=== PATIENT | female | born 1960 | race Caucasian/White ===

== ENCOUNTER 2019-05-09 05:04 | Inpatient (IN) | payer OTHER ==
[~2019-05-09] VITALS: Ht 165.1 cm; Wt 99.9 kg
--- NOTE | 2019-05-09 05:24 | PHYS DOC ---
Adult General Chief Complaint Chief Complaint: SYNCOPE HPI HPI Patient is a 59 year old f biba with syncopal event. ate shrimp with [place] island[place] food last night. went to bathroom thought she was going to have some diarrhea become very very lightheaded and had to sit herself on the ground she might have lost consciousness for a few seconds she's not sure did not hit her head on arrival to the emergency room and large volume diarrhea. Apparently according to the paramedics to try to do orthostatics but she just got so dizzy she almost passed out again when they sat her up blood pressure lying flat was 110 systolic Past medical history includes a prior gastric bypass as well as a thyroid problem but generally is overall pretty healthy. lot of stress daughter , issues there. also lots of work stress (JUAN MANUEL HIDALGO MD) Review of Systems Review of Systems Constitutional: Denies fever or chills [] Eyes: Denies change in visual acuity, redness, or eye pain [] HENT: Denies nasal congestion or sore throat [] Respiratory: Denies cough or shortness of breath [] Cardiovascular: No additional information not addressed in HPI [] Integument: Denies rash or skin lesions [] Neurologic: Denies headache, focal weakness or sensory changes [] Endocrine: Denies polyuria or polydipsia [] All other systems were reviewed and found to be within normal limits, except as documented in this note. (JUAN MANUEL HIDALGO MD) Current Medications Current Medications Current Medications Medications (Trade) Dose Ordered Sig/Reynold Start Time Stop Time Status Last Admin Dose Admin Dicyclomine HCl (Bentyl) 10 mg 1X ONCE 05/09/19 07:15 05/09/19 07:16 DC 05/09/19 07:55 10 MG Fentanyl Citrate (Fentanyl 2ml Vial) 50 mcg 1X ONCE 05/09/19 07:15 05/09/19 07:16 DC 05/09/19 07:57 50 MCG Info (CONTRAST GIVEN -- Rx MONITORING) 1 each PRN DAILY PRN 05/09/19 08:00 05/11/19 07:59 Iohexol (Omnipaque 300 Mg/ml) 60 ml 1X ONCE 05/09/19 08:00 05/09/19 08:01 DC 05/09/19 08:25 60 ML Ketorolac Tromethamine (Toradol 30mg Vial) 30 mg 1X ONCE 05/09/19 07:00 05/09/19 07:01 DC 05/09/19 06:27 30 MG Ondansetron HCl (Zofran) 4 mg 1X ONCE 05/09/19 06:15 05/09/19 06:16 DC 05/09/19 06:06 4 MG Sodium Chloride 500 ml @ 500 mls/hr 1X ONCE 05/09/19 06:00 05/09/19 06:59 DC 05/09/19 06:07 500 MLS/HR (BRITNEY PINEDA MD) Allergies Allergies Allergies Coded Allergies Type Severity Reaction Last Updated Verified acetaminophen Adverse Reaction Mild ITCHING 05/09/19 Yes amoxicillin Adverse Reaction Mild DIARRHEA 05/09/19 Yes clavulanic acid Adverse Reaction Mild DIARRHEA 05/09/19 Yes hydrocodone Adverse Reaction Mild ITCHING 05/09/19 Yes (BRITNEY PINEDA MD) Physical Exam Physical Exam Constitutional: Well developed, well nourished, no acute distress, non-toxic appearance. [] HENT: Normocephalic, atraumatic, bilateral external ears normal, oropharynx dry no oral exudates, nose normal. [] Eyes: PERRLA, EOMI, conjunctiva normal, no discharge. [] Neck: Normal range of motion, no tenderness, supple, no stridor. [] Cardiovascular:Heart rate regular rhythm, no murmur [] Lungs & Thorax: Bilateral breath sounds clear to auscultation [] Abdomen: Bowel sounds normal, soft, no tenderness, no masses, no pulsatile m asses. [] Skin: Warm, dry, no erythema, no rash. [] Back: No tenderness, no CVA tenderness. [] Extremities: No tenderness, no cyanosis, no clubbing, ROM intact, no edema. [] Neurologic: Alert and oriented X 3, normal motor function, normal sensory function, no focal deficits noted. [] Psychologic: Affect normal, judgement normal, mood normal. [] (JUAN MANUEL HIDALGO MD) Current Patient Data Vital Signs Vital Signs Date Time Temp Pulse Resp B/P (MAP) Pulse Ox O2 Delivery O2 Flow Rate FiO2 05/09/19 08:00 80 23 107/76 (86) 96 Room Air 05/09/19 05:04 97.3 97.3 (BRITNEY PINEDA MD) Lab Values Laboratory Tests Test 05/09/19 05:20 05/09/19 07:15 White Blood Count 14.8 x10^3/uL (4.0-11.0) H Red Blood Count 4.35 x10^6/uL (3.50-5.40) Hemoglobin 13.6 g/dL (12.0-15.5) Hematocrit 40.3 % (36.0-47.0) Mean Corpuscular Volume 93 fL (79-100) Mean Corpuscular Hemoglobin 31 pg (25-35) Mean Corpuscular Hemoglobin Concent 34 g/dL (31-37) Red Cell Distribution Width 12.8 % (11.5-14.5) Platelet Count 285 x10^3/uL (140-400) Neutrophils (%) (Auto) 79 % (31-73) H Lymphocytes (%) (Auto) 16 % (24-48) L Monocytes (%) (Auto) 5 % (0-9) Eosinophils (%) (Auto) 0 % (0-3) Basophils (%) (Auto) 0 % (0-3) Neutrophils # (Auto) 11.7 x10^3uL (1.8-7.7) H Lymphocytes # (Auto) 2.3 x10^3/uL (1.0-4.8) Monocytes # (Auto) 0.7 x10^3/uL (0.0-1.1) Eosinophils # (Auto) 0.0 x10^3/uL (0.0-0.7) Basophils # (Auto) 0.0 x10^3/uL (0.0-0.2) Sodium Level 141 mmol/L (136-145) Potassium Level 3.9 mmol/L (3.5-5.1) Chloride Level 103 mmol/L (98-107) Carbon Dioxide Level 27 mmol/L (21-32) Anion Gap 11 (6-14) Blood Urea Nitrogen 13 mg/dL (7-20) Creatinine 1.0 mg/dL (0.6-1.0) Estimated GFR (Cockcroft-Gault) 56.9 BUN/Creatinine Ratio 13 (6-20) Glucose Level 139 mg/dL (70-99) H Calcium Level 9.5 mg/dL (8.5-10.1) Magnesium Level 2.2 mg/dL (1.8-2.4) Total Bilirubin 0.5 mg/dL (0.2-1.0) Aspartate Amino Transferase (AST) 21 U/L (15-37) Alanine Aminotransferase (ALT) 33 U/L (14-59) Alkaline Phosphatase 89 U/L (46-116) Total Protein 7.5 g/dL (6.4-8.2) Albumin 3.7 g/dL (3.4-5.0) Albumin/Globulin Ratio 1.0 (1.0-1.7) Urine Collection Type Unknown Urine Color Yellow Urine Clarity Clear Urine pH 5.5 Urine Specific [place] 1.015 Urine Protein Negative mg/dL (NEG-TRACE) Urine Glucose (UA) Negative mg/dL (NEG) Urine Ketones (Stick) Negative mg/dL (NEG) Urine Blood Negative (NEG) Urine Nitrite Negative (NEG) Urine Bilirubin Negative (NEG) Urine Urobilinogen Dipstick 0.2 mg/dL (0.2 mg/dL) Urine Leukocyte Esterase Trace (NEG) Urine RBC 0 /HPF (0-2) Urine WBC 5-10 /HPF (0-4) Urine Squamous Epithelial Cells Mod /LPF Urine Bacteria Moderate /HPF (0-FEW) Urine Hyaline Casts Few /HPF Urine Mucus Marked /LPF Laboratory Tests 05/09/19 05:20 Laboratory Tests 05/09/19 05:20 (BRITNEY PINEDA MD) EKG EKG EKG shows a normal sinus rhythm rate of 78 QTC 462 no STEMI no obvious acute ischemic changes noted interpreted by me the time of encounter[] (JUAN MANUEL HIDALGO MD) Radiology/Procedures Radiology/Procedures [] (JUAN MANUEL HIDALGO MD) Radiology/Procedures [facility] [address] [place] [address] IMAGING REPORT Signed PATIENT: YURY MCCLURE ACCOUNT: [id number] : 1960 LOCATION: [address] [place] [address] AGE: 59 SEX: F EXAM STATUS: ADM IN ORD. PHYSICIAN: BRITNEY PNIEDA MD REASON: syncope PROCEDURE: CT HEAD WO CONTRAST EXAM: CT Head without IV contrast CLINICAL HISTORY: Syncope COMPARISON: None. TECHNIQUE: Routine CT of the head without contrast. Soft tissues and bone windows were reviewed. PQRS compliance statement - One or more of the following individualized dose reduction techniques were utilized for this study: 1. Automated exposure control 2. Adjustment of the mA and/or kV according to patient size 3. Use of iterative reconstruction technique FINDINGS: There is no evidence of hemorrhage, mass or extra-axial fluid collection. Barnett-white differentiation is maintained with no evidence of edema. There is no mass effect or shift of the intracranial structures. The ventricles, basilar cisterns and cortical sulci are normal in size and configuration for the patients stated age. The cerebellum and brainstem are unremarkable. The calvarium demonstrates no evidence of fracture or focal lesion. Partial opacification of the maxillary sinuses with air-fluid level, nonspecific may be seen with sinusitis. Patchy opacification of scattered ethmoid air cells. Mastoid air cells are clear. The visualized portions of the orbits are normal. IMPRESSION: No evidence for acute intracranial process Multifocal sinus opacification may represent changes of sinusitis. Electronically signed by: Angel Caban MD (05/09/2019 8:45 AM) [id number] DICTATED and SIGNED BY: ANGEL CABAN MD DATE: 05/09/19 0845 [facility] [address] [place] [address] IMAGING REPORT Signed PATIENT: YURY MCCLURE ACCOUNT: [id number] : 1960 LOCATION: [address] [place] [address] AGE: 59 SEX: F EXAM STATUS: ADM IN ORD. PHYSICIAN: BRITNEY PINEDA MD REASON: nausea and vomiting and diarrhea and leukocytosis PROCEDURE: CT ABD PELV W/ IV CONTRST ONLY EXAM: CT Abdomen and Pelvis with IV contrast CLINICAL HISTORY: Nausea and vomiting, diarrhea. Leukocytosis.. COMPARISON: none TECHNIQUE: Helical CT of the abdomen and pelvis was performed following the administration of intravenous contrast. Axial, coronal and sagittal reformatted images were generated. PQRS compliance statement - One or more of the following individualized dose reduction techniques were utilized for this study: 1. Automated exposure control 2. Adjustment of the mA and/or kV according to patient size 3. Use of iterative reconstruction technique FINDINGS: Lower chest: Linear opacities in the lingula likely scarring/atelectasis. No lobar consolidation. Small hiatal hernia. Abdomen and Pelvis: No focal liver lesion. Diffuse hepatic hypoattenuation may be seen with hepatic steatosis. Accounting for postcholecystectomy state, no biliary ductal dilatation. A 9 mm hypodense splenic lesion is seen in the inferior, medial spleen, accurate Hounsfield measurement is limited but likely cystic. Adrenal glands and pancreas are unremarkable. Symmetric nephrograms. No focal renal lesion. No hydronephrosis. Appendix is normal. No small or large bowel dilatation. Colon is distended with fluid, may be seen with diarrheal state. Colonic diverticulosis without evidence for acute diverticulitis. Changes of gastric surgery are seen. No free or loculated abdominal or pelvic fluid collection. No pneumoperitoneum. Uterus and adnexa are grossly unremarkable. Bones: Degenerative changes of the spine are seen. IMPRESSION: 1. Colon is partially distended with fluid, which may be seen with diarrheal state. 2. Colonic diverticulosis without evidence for acute diverticulitis. 3. No small or large bowel obstruction. 4. Diffuse hepatic hypoattenuation may be seen with hepatic steatosis. 5. No free or loculated abdominal or pelvic collection. Electronically signed by: Angel Caban MD (05/09/2019 8:51 AM) [id number] DICTATED and SIGNED BY: ANGEL CABAN MD DATE: 05/09/19 0851 (BRITNEY PINEDA MD) Course & Med Decision Making Course & Med Decision Making Pertinent Labs and Imaging studies reviewed. (See chart for details) Syncope with orthostasis by the paramedics in setting of diarrhea plan for lab workup IV fluids and reassessment signed over to veronica. [] (JUAN MANUEL HIDALGO MD) Course & Med Decision Making Patient requiring admission for further evaluation and treatment. Discussed with Dr. aKpoor who is in agreement with admission. Discussed findings and plan with patient and family, who acknowledge understanding and agreement. (BRITNEY PINEDA MD) Dragon Disclaimer Dragon Disclaimer This electronic medical record was generated, in whole or in part, using a voice recognition dictation system. (JUAN MANUEL HIDALGO MD) Departure Departure Impression: Primary Impression: Syncope Additional Impression: Acute gastroenteritis Disposition: ADMITTED INPATIENT (at 0836) Admitting Physician: [facility] (Dr Kapoor accepted admission at 0835) (BRITNEY PINEDA MD) Condition: IMPROVED Referrals: DANIELLE COLE MD (PCP) Problem Qualifiers Primary Impression: Syncope Syncope type: unspecified Qualified Codes: R55 - Syncope and collapse JUAN MANUEL HIDALGO MD May 09, 2019 05:24 BRITNEY PINEDA MD May 09, 2019 06:19
[2019-05-09] MEDS ORDERED: IV NORMAL SALINE 1000ML BAG 1,000 ML IV ONE ×2 (06:00)
[2019-05-09] MEDS ORDERED: IV NORMAL SALINE 500ML BAG 500 ML IV ONE ×2 (06:00)
[2019-05-09 06:03] LABS: CALCIUM 9.5 mg/dL (8.5-10.1); GFR 56.9; POTASSIUM 3.9 mmol/L (3.5-5.1)
--- NOTE | 2019-05-09 06:04 | EKG ---
[facility] [address] [place] [address] Test Date: 2019-05-09 Test Time: 05:11:08 Pat Name: YURY MCCLURE Department: Room: Gender: F Game Room Attendant: : 1960 Requested By: JUAN MANUEL HIDALGO Order Number: [id number] Reading MD: Measurements Intervals [place] Rate: 78 P: -29 MI: 150 QRS: -17 QRSD: 88 T: 35 QT: 402 QTc: 462 Interpretive Statements SINUS RHYTHM LEFTWARD AXIS R-S TRANSITION ZONE IN V LEADS DISPLACED TO THE LEFT QRS(T) CONTOUR ABNORMALITY CONSIDER ANTEROSEPTAL MYOCARDIAL DAMAGE POSSIBLY ABNORMAL ECG RI6.01 No previous ECG available for comparison
[2019-05-09 06:11] LABS: ALBUMIN 3.7 g/dL (3.4-5.0); TOTAL BILIRUBIN 0.5 mg/dL (0.2-1.0); TOTAL PROTEIN 7.5 g/dL (6.4-8.2)
[2019-05-09] MEDS ORDERED: ONDANSETRON PF 4 MG/2 ML VIAL. IV ONE (06:15)
[2019-05-09 06:20] LABS: BASO % 0 % (0-3); EOS % 0 % (0-3); HEMATOCRIT 40.3 % (36.0-47.0); HEMOGLOBIN 13.6 g/dL (12.0-15.5); LYMPH # 2.3 x10^3/uL (1.0-4.8); LYMPH % 16 % (24-48); MEAN CORPUSCULAR HEMOGLOBIN 31 pg (25-35); MEAN CORPUSCULAR HGB CONC 34 g/dL (31-37); MEAN CORPUSCULAR VOLUME 93 fL (79-100); MONO # 0.7 x10^3/uL (0.0-1.1); MONO % 5 % (0-9); NEUT # 11.7 x10^3uL (1.8-7.7); NEUT % 79 % (31-73); PLATELET COUNT 285 x10^3/uL (140-400); RED BLOOD COUNT 4.35 x10^6/uL (3.50-5.40); RED CELL DISTRIBUTION WIDTH 12.8 % (11.5-14.5); WHITE BLOOD COUNT 14.8 x10^3/uL (4.0-11.0)
[2019-05-09] MEDS ORDERED: KETOROLAC 30 MG/ML VIAL. IV ONE (07:00)
[2019-05-09] MEDS ORDERED: fentaNYL PF VIAL 100 MCG/2 ML VIAL IV ONE ×2 (07:15→09:45)
[2019-05-09] MEDS ORDERED: DICYCLOMINE HCL 10 MG CAPSULE PO ONE (07:15)
[2019-05-09 07:48] LABS: BILIRUBIN,URINE NEGATIVE (NEG); CLARITY,URINE CLEAR; COLOR,URINE YELLOW; NITRITE,URINE NEGATIVE (NEG); PH,URINE 5.5; PROTEIN,URINE NEGATIVE (NEG-TRACE); UROBILINOGEN,URINE 0.2 mg/dL (0.2 mg/dL)
[2019-05-09] MEDS ORDERED: CONTRAST GIVEN. MC PRN (08:00)
[2019-05-09] MEDS ORDERED: IOHEXOL 300 MG/ML 100ML VIAL. IV ONE (08:00)
[2019-05-09 08:06] LABS: BACTERIA,URINE MODERATE /HPF (0-FEW); HYALINE CASTS, URINE FEW /HPF; RBC,URINE 0 /HPF (0-2); SQUAMOUS EPITHELIAL CELL,UR MOD /LPF
--- NOTE | 2019-05-09 08:37 | PDOC1 ---
History and Physical Date of Admission Date of Admission DATE: 05/09/19 TIME: 08:35 Identification/Chief Complaint Chief Complaint Syncope Source Source: Caregiver, Chart review, Patient History of Present Illness History of Present Illness Ms Pagan is a 59 yo F w/ PMHx gastric sleeve and hypothyroidism who presents with a syncopal event. This began after large voluminous diarrheal BM after she ate fried rice and shrimp with prydeinig food last night. 2 meals prior to that were canned green beans 2 days in a row and a protein shake for breakfast. Has been ill since 4:30 a.m. She got out of bed to urinate and then fainted twice at home, doesn't remember parts of journey to the hospital, felt cold and was sweaty, extremities were tingling and she couldn't move them the second time she lost consciousness. Vomiting and voluminous diarrhea started upon ED arrival. WBC 14.8. Glucose 139. CT A/P noted partially distended colon w/ fluid, diverticulosis, and hepatic steatosis. EKG was NSR No hematemesis, hematochezia, or melena. No change in appetite or weight loss. S/p cholecystectomy (no stones). No liver or pancreas history. Takes ASA daily and uses Advil PRN. She notes significant stress lately. 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 Otherwise no sick contacts. She does further note that she has been having headaches the past 6 weeks since starting estrogen and Vitamin D [id number] weekly. Notes she had a B12 level of 200 at the same office visit 6 weeks ago. No history of syncope or seizures previously. No cardiac history. Past Medical History Cardiovascular: No pertinent hx Pulmonary: No pertinent hx GI: GERD Heme/Onc: B12 deficiency Hepatobiliary: No pertinent hx Psych: No pertinent hx Rheumatologic: No pertinent hx Infectious disease: No pertinent hx ENT: No pertinent hx Renal/: No pertinent hx Endocrine: Hypothyroidism Dermatology: No pertinent hx Past Surgical History Past Surgical History: Appendectomy, Cholecystectomy, , Tonsillectomy, Other (Gastric sleeve) Family History Family History: Hypertension Social History Smoke: <1 pack per day ALCOHOL: rare Drugs: None Current Medications Current Medications Current Medications Sodium Chloride 1,000 ml @ 1,000 mls/hr 1X ONCE IV ; Start 05/09/19 at 06:00; Stop 05/09/19 at 06:59; Status UNV Sodium Chloride 500 ml @ 500 mls/hr 1X ONCE IV ; Start 05/09/19 at 06:00; Stop 05/09/19 at 06:59; Status UNV Sodium Chloride 1,000 ml @ 1,000 mls/hr 1X ONCE IV Last administered on 11/15at 06:07; Start 05/09/19 at 06:00; Stop 05/09/19 at 06:59; Status DC Sodium Chloride 500 ml @ 500 mls/hr 1X ONCE IV Last administered on 05/09/19at 06:07; Start 05/09/19 at 06:00; Stop 05/09/19 at 06:59; Status DC Ondansetron HCl (Zofran) 4 mg 1X ONCE IV Last administered on 05/09/19at 06:06; Start 05/09/19 at 06:15; Stop 05/09/19 at 06:16; Status DC Ketorolac Tromethamine (Toradol 30mg Vial) 30 mg 1X ONCE IV Last administered on 05/09/19at 06:27; Start 05/09/19 at 07:00; Stop 05/09/19 at 07:01; Status DC Fentanyl Citrate (Fentanyl 2ml Vial) 50 mcg 1X ONCE IV ; Start 05/09/19 at 07:15; Stop 05/09/19 at 07:16; Status DC Dicyclomine HCl (Bentyl) 10 mg 1X ONCE PO ; Start 05/09/19 at 07:15; Stop 05/09/19 at 07:16; Status DC Iohexol (Omnipaque 300 Mg/ml) 60 ml 1X ONCE IV Last administered on 05/09/19at 08:25; Start 05/09/19 at 08:00; Stop 05/09/19 at 08:01; Status DC Info (CONTRAST GIVEN -- Rx MONITORING) 1 each PRN DAILY PRN MC SEE COMMENTS; Start 05/09/19 at 08:00; Stop 05/11/19 at 07:59 Allergies Allergies: Coded Allergies: amoxicillin (Verified Adverse Reaction, Mild, DIARRHEA, 05/09/19) clavulanic acid (Verified Adverse Reaction, Mild, DIARRHEA, 05/09/19) hydrocodone (Verified Adverse Reaction, Mild, ITCHING , 05/09/19) ROS General: YES: Chills, Fatigue, Malaise; No: Night Sweats, Appetite, Other PSYCHOLOGICAL ROS: YES: Anxiety; No: Behavioral Disorder, Concentration difficultie, Decreased libido, Depression, Disorientation, Hallucinations, Hostility, Irritablity, Memory difficulties, Mood Swings, Obsessive thoughts, Physical abuse, Sexual abuse, Sle ep disturbances, Suicidal ideation, Other Eyes: No Blurry vision, No Decreased vision, No Double vision, No Dry eyes, No Excessive tearing, No Eye Pain, No Itchy Eyes, No Loss of vision, No Photophobia, No Scotomata, No Uses contacts, No Uses glasses, No Other HEENT: YES: Heacaches; No: Visual Changes, Hearing change, Nasal congestion, Nasal discharge, Oral lesions, Sinus pain, Sore Throat, Epistaxis, Sneezing, Snoring, Tinnitus, Vertigo, Vocal changes, Other ALLERGY AND IMMUNOLOGY: No: Hives, Insect Bite Sensitivity, Itchy/Watery Eyes, Nasal Congestion, Post Nasal Drip, Seasonal Allergies, Other Hematological and Lymphatic: No: Bleeding Problems, Blood Clots, Blood Transfusions, Brusing, Night Sweats, Pallor, Swollen Lymph Nodes, Other ENDOCRINE: No: Breast Changes, Galactorrhea, Hair Pattern Changes, Hot Flashes, Malaise/lethargy, Mood Swings, Palpitations, Polydipsia/polyuria, Skin Changes, Temperature Intolerance, Unexpected Weight Changes, Other Breast: No New/Changing Breast Lumps, No Nipple changes, No Nipple discharge, No Other Respiratory: No: Cough, Hemoptysis, Orthopnea, Pleuritic Pain, Shortness of breath, SOB with excertion, Sputum Changes, Stridor, Tachypnea, Wheezing, Other Cardiovascular: No Chest Pain, No Palpitations, No Orthopnea, No Paroxysmal Noc. Dyspnea, No Edema, No Lt Headedness, No Other Gastrointestinal: Yes Nausea, Yes Vomiting, Yes Abdominal Pain, Yes Diarrhea; No Constipation, No Melena, No Hematochezia, No Other Genitourinary: No Dysuria, No Frequency, No Incontinence, No Hematuria, No Retention, No Discharge, No Urgency, No Pain, No Flank Pain, No Other, No , No , No , No , No , No , No Musculoskeletal: No Gait Disturbance, No Joint Pain, No Joint Stiffness, No Joint Swelling, No Muscle Pain, No Muscular Weakness, No Pain In:, No Swelling In:, No Other Neurological: Yes Headaches; No Behavorial Changes, No Bowel/Bladder ControlChng, No Confusion, No Dizziness, No Gait Disturbance, No Impaired Coord/balance, No Memory Loss, No Numbness/Tingling, No Seizures, No Speech Problems, No Tremors, No Visual Changes, No Weakness, No Other Skin: No Dry Skin, No Eczema, No Hair Changes, No Lumps, No Mole Changes, No Mottling, No Nail Changes, No Pruritus, No Rash, No Skin Lesion Changes, No Other, No Acne Physical Exam General: Alert, Oriented X3, Cooperative, No acute distress HEENT: Atraumatic, PERRLA, EOMI, Mucous membr. moist/pink Lungs: Clear to auscultation, Normal air movement Heart: S1S2, RRR Abdomen: Normal bowel sounds, Soft, No hepatosplenomegaly, No masses, Other (diffuse mild tenderness) Rectal Exam: not examined Extremities: No clubbing, No cyanosis, No edema, Normal pulses, No tenderness/swelling Skin: No rashes, No breakdown, No significant lesion Neuro: Normal gait, Normal speech, Strength at 5/5 X4 ext, Normal tone, Sensation intact, Cranial nerves 3-12 NL, Reflexes 2+ Psych/Mental Status: Mental status NL, Mood NL Vitals Vitals Vital Signs Date Time Temp Pulse Resp B/P (MAP) Pulse Ox O2 Delivery O2 Flow Rate FiO2 05/09/19 06:57 85 16 100/67 (78) 97 Room Air 05/09/19 05:04 97.3 97.3 Labs Labs Laboratory Tests Test 05/09/19 05:20 05/09/19 07:15 White Blood Count 14.8 x10^3/uL (4.0-11.0) Red Blood Count 4.35 x10^6/uL (3.50-5.40) Hemoglobin 13.6 g/dL (12.0-15.5) Hematocrit 40.3 % (36.0-47.0) Mean Corpuscular Volume 93 fL (79-100) Mean Corpuscular Hemoglobin 31 pg (25-35) Mean Corpuscular Hemoglobin Concent 34 g/dL (31-37) Red Cell Distribution Width 12.8 % (11.5-14.5) Platelet Count 285 x10^3/uL (140-400) Neutrophils (%) (Auto) 79 % (31-73) Lymphocytes (%) (Auto) 16 % (24-48) Monocytes (%) (Auto) 5 % (0-9) Eosinophils (%) (Auto) 0 % (0-3) Basophils (%) (Auto) 0 % (0-3) Neutrophils # (Auto) 11.7 x10^3uL (1.8-7.7) Lymphocytes # (Auto) 2.3 x10^3/uL (1.0-4.8) Monocytes # (Auto) 0.7 x10^3/uL (0.0-1.1) Eosinophils # (Auto) 0.0 x10^3/uL (0.0-0.7) Basophils # (Auto) 0.0 x10^3/uL (0.0-0.2) Sodium Level 141 mmol/L (136-145) Potassium Level 3.9 mmol/L (3.5-5.1) Chloride Level 103 mmol/L (98-107) Carbon Dioxide Level 27 mmol/L (21-32) Anion Gap 11 (6-14) Blood Urea Nitrogen 13 mg/dL (7-20) Creatinine 1.0 mg/dL (0.6-1.0) Estimated GFR (Cockcroft-Gault) 56.9 BUN/Creatinine Ratio 13 (6-20) Glucose Level 139 mg/dL (70-99) Calcium Level 9.5 mg/dL (8.5-10.1) Total Bilirubin 0.5 mg/dL (0.2-1.0) Aspartate Amino Transf (AST/SGOT) 21 U/L (15-37) Alanine Aminotransferase (ALT/SGPT) 33 U/L (14-59) Alkaline Phosphatase 89 U/L (46-116) Total Protein 7.5 g/dL (6.4-8.2) Albumin 3.7 g/dL (3.4-5.0) Albumin/Globulin Ratio 1.0 (1.0-1.7) Urine Collection Type Unknown Urine Color Yellow Urine Clarity Clear Urine pH 5.5 Urine Specific [place] 1.015 Urine Protein Negative mg/dL (NEG-TRACE) Urine Glucose (UA) Negative mg/dL (NEG) Urine Ketones (Stick) Negative mg/dL (NEG) Urine Blood Negative (NEG) Urine Nitrite Negative (NEG) Urine Bilirubin Negative (NEG) Urine Urobilinogen Dipstick 0.2 mg/dL (0.2 mg/dL) Urine Leukocyte Esterase Trace (NEG) Urine RBC 0 /HPF (0-2) Urine WBC 5-10 /HPF (0-4) Urine Squamous Epithelial Cells Mod /LPF Urine Bacteria Moderate /HPF (0-FEW) Urine Hyaline Casts Few /HPF Urine Mucus Marked /LPF Laboratory Tests Test 05/09/19 05:20 05/09/19 07:15 White Blood Count 14.8 x10^3/uL (4.0-11.0) Red Blood Count 4.35 x10^6/uL (3.50-5.40) Hemoglobin 13.6 g/dL (12.0-15.5) Hematocrit 40.3 % (36.0-47.0) Mean Corpuscular Volume 93 fL (79-100) Mean Corpuscular Hemoglobin 31 pg (25-35) Mean Corpuscular Hemoglobin Concent 34 g/dL (31-37) Red Cell Distribution Width 12.8 % (11.5-14.5) Platelet Count 285 x10^3/uL (140-400) Neutrophils (%) (Auto) 79 % (31-73) Lymphocytes (%) (Auto) 16 % (24-48) Monocytes (%) (Auto) 5 % (0-9) Eosinophils (%) (Auto) 0 % (0-3) Basophils (%) (Auto) 0 % (0-3) Neutrophils # (Auto) 11.7 x10^3uL (1.8-7.7) Lymphocytes # (Auto) 2.3 x10^3/uL (1.0-4.8) Monocytes # (Auto) 0.7 x10^3/uL (0.0-1.1) Eosinophils # (Auto) 0.0 x10^3/uL (0.0-0.7) Basophils # (Auto) 0.0 x10^3/uL (0.0-0.2) Sodium Level 141 mmol/L (136-145) Potassium Level 3.9 mmol/L (3.5-5.1) Chloride Level 103 mmol/L (98-107) Carbon Dioxide Level 27 mmol/L (21-32) Anion Gap 11 (6-14) Blood Urea Nitrogen 13 mg/dL (7-20) Creatinine 1.0 mg/dL (0.6-1.0) Estimated GFR (Cockcroft-Gault) 56.9 BUN/Creatinine Ratio 13 (6-20) Glucose Level 139 mg/dL (70-99) Calcium Level 9.5 mg/dL (8.5-10.1) Total Bilirubin 0.5 mg/dL (0.2-1.0) Aspartate Amino Transf (AST/SGOT) 21 U/L (15-37) Alanine Aminotransferase (ALT/SGPT) 33 U/L (14-59) Alkaline Phosphatase 89 U/L (46-116) Total Protein 7.5 g/dL (6.4-8.2) Albumin 3.7 g/dL (3.4-5.0) Albumin/Globulin Ratio 1.0 (1.0-1.7) Urine Collection Type Unknown Urine Color Yellow Urine Clarity Clear Urine pH 5.5 Urine Specific [place] 1.015 Urine Protein Negative mg/dL (NEG-TRACE) Urine Glucose (UA) Negative mg/dL (NEG) Urine Ketones (Stick) Negative mg/dL (NEG) Urine Blood Negative (NEG) Urine Nitrite Negative (NEG) Urine Bilirubin Negative (NEG) Urine Urobilinogen Dipstick 0.2 mg/dL (0.2 mg/dL) Urine Leukocyte Esterase Trace (NEG) Urine RBC 0 /HPF (0-2) Urine WBC 5-10 /HPF (0-4) Urine Squamous Epithelial Cells Mod /LPF Urine Bacteria Moderate /HPF (0-FEW) Urine Hyaline Casts Few /HPF Urine Mucus Marked /LPF Images Images CT head - No evidence for acute intracranial process Multifocal sinus opacification may represent changes of sinusitis. CT abdomen/pelvis - 1. Colon is partially distended with fluid, which may be seen with diarrheal state. 2. Colonic diverticulosis without evidence for acute diverticulitis. 3. No small or large bowel obstruction. 4. Diffuse hepatic hypoattenuation may be seen with hepatic steatosis. 5. No free or loculated abdominal or pelvic collection. VTE Prophylaxis Ordered VTE Prophylaxis Devices: No VTE Pharmacological Prophylaxi: Yes Assessment/Plan Assessment/Plan A/P: Syncope - likely vasovagal given her history. Will place on telemetry. Check echo. Consult neurology. IVF resuscitation N/V/D - gastroenteritis symptomatically this is likely toxigenic food poisoning given her time course, if infectious more likely viral or e. coli. Would be too high risk to treat with antibiotics without stool. Consult GI given gastric sleeve history S/p gastric sleeve - appropriately on vitamin D replacement, will replace B12 B12 deficiency - replaced Hypothyroidism - cont thyroid replacement Headaches - will add toradol and compazine. Given syncope with EMERY, will consult neurology for further input FEN - Clear liquid diet. LR at 150cc/hr PPX - Lovenox FULL CODE Inpatient for syncope and intractable nausea and vomiting. Will culture if febrile CHAZ JUAREZ MD May 09, 2019 08:37
--- NOTE | 2019-05-09 08:48 | RAD ---
EXAM: CT Head without IV contrast CLINICAL HISTORY: Syncope COMPARISON: None. TECHNIQUE: Routine CT of the head without contrast. Soft tissues and bone windows were reviewed. PQRS compliance statement - One or more of the following individualized dose reduction techniques were utilized for this study: 1. Automated exposure control 2. Adjustment of the mA and/or kV according to patient size 3. Use of iterative reconstruction technique FINDINGS: There is no evidence of hemorrhage, mass or extra-axial fluid collection. Barnett-white differentiation is maintained with no evidence of edema. There is no mass effect or shift of the intracranial structures. The ventricles, basilar cisterns and cortical sulci are normal in size and configuration for the patients stated age. The cerebellum and brainstem are unremarkable. The calvarium demonstrates no evidence of fracture or focal lesion. Partial opacification of the maxillary sinuses with air-fluid level, nonspecific may be seen with sinusitis. Patchy opacification of scattered ethmoid air cells. Mastoid air cells are clear. The visualized portions of the orbits are normal. IMPRESSION: No evidence for acute intracranial process Multifocal sinus opacification may represent changes of sinusitis. Electronically signed by: Angel Soto MD (05/09/2019 8:45 AM) [id number]
--- NOTE | 2019-05-09 08:53 | RAD ---
EXAM: CT Abdomen and Pelvis with IV contrast CLINICAL HISTORY: Nausea and vomiting, diarrhea. Leukocytosis.. COMPARISON: none TECHNIQUE: Helical CT of the abdomen and pelvis was performed following the administration of intravenous contrast. Axial, coronal and sagittal reformatted images were generated. PQRS compliance statement - One or more of the following individualized dose reduction techniques were utilized for this study: 1. Automated exposure control 2. Adjustment of the mA and/or kV according to patient size 3. Use of iterative reconstruction technique FINDINGS: Lower chest: Linear opacities in the lingula likely scarring/atelectasis. No lobar consolidation. Small hiatal hernia. Abdomen and Pelvis: No focal liver lesion. Diffuse hepatic hypoattenuation may be seen with hepatic steatosis. Accounting for postcholecystectomy state, no biliary ductal dilatation. A 9 mm hypodense splenic lesion is seen in the inferior, medial spleen, accurate Hounsfield measurement is limited but likely cystic. Adrenal glands and pancreas are unremarkable. Symmetric nephrograms. No focal renal lesion. No hydronephrosis. Appendix is normal. No small or large bowel dilatation. Colon is distended with fluid, may be seen with diarrheal state. Colonic diverticulosis without evidence for acute diverticulitis. Changes of gastric surgery are seen. No free or loculated abdominal or pelvic fluid collection. No pneumoperitoneum. Uterus and adnexa are grossly unremarkable. Bones: Degenerative changes of the spine are seen. IMPRESSION: 1. Colon is partially distended with fluid, which may be seen with diarrheal state. 2. Colonic diverticulosis without evidence for acute diverticulitis. 3. No small or large bowel obstruction. 4. Diffuse hepatic hypoattenuation may be seen with hepatic steatosis. 5. No free or loculated abdominal or pelvic collection. Electronically signed by: Angel Soto MD (05/09/2019 8:51 AM) [id number]
[2019-05-09] MEDS ORDERED: CYANOCOBALAMIN (VITAMIN B-12) 1,000 MCG/ML VIAL IM ONE (10:00)
[2019-05-09] MEDS ORDERED: IV NORMAL SALINE 1000ML BAG 1,000 ML IV SCH (10:00)
[2019-05-09 10:30] VITALS: BP 112/76
[2019-05-09] MEDS ORDERED: DOCU100C28 PO (10:58)
[2019-05-09] MEDS ORDERED: ASPI-630 PO (10:58)
[2019-05-09] MEDS ORDERED: LEVO100T5 PO (10:58)
[2019-05-09] MEDS ORDERED: VENL225T PO (10:58)
[2019-05-09] MEDS ORDERED: OMEP40CA5 PO (10:58)
[2019-05-09] MEDS ORDERED: PROCHLORPERAZINE 10 MG/2 ML VIAL. IM PRN (11:30)
[2019-05-09] MEDS: IV RINGERS,LACTATED 1000ML 1,000 ML IV SCH ×2 (11:38→19:54)
[2019-05-09] MEDS: LEVOTHYROXINE 100 MCG TABLET PO SCH (11:39)
[2019-05-09] MEDS ORDERED: ASPIRIN CHEWABLE 81 MG TABLET. PO SCH (12:00)
[2019-05-09] MEDS: PROCHLORPERAZINE 10 MG/2 ML VIAL. IV PRN ×2 (12:07→18:47)
--- NOTE | 2019-05-09 12:57 | PDOC2 ---
GI CONSULT Reason For Consult: gastroenteritis, syncope HPI: HPI: 59 y/o female admitted through the ER, seen w/ Dr. Holguin this morning. Has been ill since 4:00 a.m. Says she got out of bed to urinate and then fainted several times, doesn't remember parts of journey to the hospital, felt cold and was sweaty, extremities were tingling and she couldn't move them, says blood pressure was low. Vomiting and diarrhea started after arrival here. Feels like it might happen again, has some abdominal soreness and cramping. WBC 14.8. CT A/P noted partially distended colon w/ fluid, diverticulosis, and hepatic steatosis. Has seen Dr. Zambrano in the past. H/o GERD on Prilosec QD. No dysphagia. No chronic n/v, abd pain, or diarrhea. H/o constipation resolved w/ daily stool softener. No hematemesis, hematochezia, or melena. No change in appetite or weight loss. Reports previous EGDs except for noting gastric sleeve. H/o diverticulitis requiring 7 day hospitalization and IV antibiotics ~20 years ago. Says no mention of diverticular disease on colonoscopy ~6 years ago. S/p cholecystectomy (no stones). No liver or pancreas history. Takes ASA daily and uses Advil PRN. PMH: PMH: GERD, hypothyroidism, depression tonsillectomy, appendectomy, , cholecystectomy FH: Family History: No pertinent hx (denies GI cancers) Social History: Smoke: <1 pack per day (socially when she has a glass of wine) ALCOHOL: social Drugs: None ROS: GEN: +sweats HEENT: Denies blurred vision, sore throat CV: Denies chest pain RESP: Denies shortness of air, cough GI: Per HPI : Denies hematuria, dysuria ENDO: Denies weight changes NEURO: +tingling +syncope MSK: +weakness SKIN: Denies jaundice, pruritus Vitals: Vitals: Vital Signs Date Time Temp Pulse Resp B/P (MAP) Pulse Ox O2 Delivery O2 Flow Rate FiO2 05/09/19 10:42 Room Air 05/09/19 10:30 97.9 79 20 112/76 (88) 96 97.9 Labs: Labs: Laboratory Tests Test 05/09/19 05:20 05/09/19 07:15 White Blood Count 14.8 x10^3/uL (4.0-11.0) Red Blood Count 4.35 x10^6/uL (3.50-5.40) Hemoglobin 13.6 g/dL (12.0-15.5) Hematocrit 40.3 % (36.0-47.0) Mean Corpuscular Volume 93 fL (79-100) Mean Corpuscular Hemoglobin 31 pg (25-35) Mean Corpuscular Hemoglobin Concent 34 g/dL (31-37) Red Cell Distribution Width 12.8 % (11.5-14.5) Platelet Count 285 x10^3/uL (140-400) Neutrophils (%) (Auto) 79 % (31-73) Lymphocytes (%) (Auto) 16 % (24-48) Monocytes (%) (Auto) 5 % (0-9) Eosinophils (%) (Auto) 0 % (0-3) Basophils (%) (Auto) 0 % (0-3) Neutrophils # (Auto) 11.7 x10^3uL (1.8-7.7) Lymphocytes # (Auto) 2.3 x10^3/uL (1.0-4.8) Monocytes # (Auto) 0.7 x10^3/uL (0.0-1.1) Eosinophils # (Auto) 0.0 x10^3/uL (0.0-0.7) Basophils # (Auto) 0.0 x10^3/uL (0.0-0.2) Sodium Level 141 mmol/L (136-145) Potassium Level 3.9 mmol/L (3.5-5.1) Chloride Level 103 mmol/L (98-107) Carbon Dioxide Level 27 mmol/L (21-32) Anion Gap 11 (6-14) Blood Urea Nitrogen 13 mg/dL (7-20) Creatinine 1.0 mg/dL (0.6-1.0) Estimated GFR (Cockcroft-Gault) 56.9 BUN/Creatinine Ratio 13 (6-20) Glucose Level 139 mg/dL (70-99) Calcium Level 9.5 mg/dL (8.5-10.1) Magnesium Level 2.2 mg/dL (1.8-2.4) Total Bilirubin 0.5 mg/dL (0.2-1.0) Aspartate Amino Transf (AST/SGOT) 21 U/L (15-37) Alanine Aminotransferase (ALT/SGPT) 33 U/L (14-59) Alkaline Phosphatase 89 U/L (46-116) Total Protein 7.5 g/dL (6.4-8.2) Albumin 3.7 g/dL (3.4-5.0) Albumin/Globulin Ratio 1.0 (1.0-1.7) Urine Collection Type Unknown Urine Color Yellow Urine Clarity Clear Urine pH 5.5 Urine Specific [place] 1.015 Urine Protein Negative mg/dL (NEG-TRACE) Urine Glucose (UA) Negative mg/dL (NEG) Urine Ketones (Stick) Negative mg/dL (NEG) Urine Blood Negative (NEG) Urine Nitrite Negative (NEG) Urine Bilirubin Negative (NEG) Urine Urobilinogen Dipstick 0.2 mg/dL (0.2 mg/dL) Urine Leukocyte Esterase Trace (NEG) Urine RBC 0 /HPF (0-2) Urine WBC 5-10 /HPF (0-4) Urine Squamous Epithelial Cells Mod /LPF Urine Bacteria Moderate /HPF (0-FEW) Urine Hyaline Casts Few /HPF Urine Mucus Marked /LPF Allergies: Coded Allergies: No Known Medication Allergies (Verified Allergy, Unknown, 05/09/19) acetaminophen (Verified Adverse Reaction, Mild, ITCHING , 05/09/19) amoxicillin (Verified Adverse Reaction, Mild, DIARRHEA, 05/09/19) clavulanic acid (Verified Adverse Reaction, Mild, DIARRHEA, 05/09/19) hydrocodone (Verified Adverse Reaction, Mild, ITCHING , 05/09/19) Medications: Current Medications Medications (Trade) Dose Ordered Sig/Reynold Route PRN Reason Start Time Stop Time Status Last Admin Dose Admin Sodium Chloride 1,000 ml @ 1,000 mls/hr 1X ONCE IV 05/09/19 06:00 05/09/19 06:59 DC 05/09/19 06:07 Sodium Chloride 500 ml @ 500 mls/hr 1X ONCE IV 05/09/19 06:00 05/09/19 06:59 DC 05/09/19 06:07 Ondansetron HCl (Zofran) 4 mg 1X ONCE IV 05/09/19 06:15 05/09/19 06:16 DC 05/09/19 06:06 Ketorolac Tromethamine (Toradol 30mg Vial) 30 mg 1X ONCE IV 05/09/19 07:00 05/09/19 07:01 DC 05/09/19 06:27 Fentanyl Citrate (Fentanyl 2ml Vial) 50 mcg 1X ONCE IV 05/09/19 07:15 05/09/19 07:16 DC 05/09/19 07:57 Dicyclomine HCl (Bentyl) 10 mg 1X ONCE PO 05/09/19 07:15 05/09/19 07:16 DC 05/09/19 07:55 Iohexol (Omnipaque 300 Mg/ml) 60 ml 1X ONCE IV 05/09/19 08:00 05/09/19 08:01 DC 05/09/19 08:25 Fentanyl Citrate (Fentanyl 2ml Vial) 50 mcg 1X ONCE IV 05/09/19 09:45 05/09/19 09:46 DC 05/09/19 09:58 Sodium Chloride 1,000 ml @ 150 mls/hr Q6H40M IV 05/09/19 10:00 05/10/19 09:59 05/09/19 10:07 Cyanocobalamin (Vitamin B-12) 1,000 mcg ONCE ONCE IM 05/09/19 10:00 05/09/19 10:01 DC 05/09/19 11:38 Levothyroxine Sodium (Synthroid) 100 mcg DAILYAC PO 05/09/19 12:00 05/09/19 11:39 Ringer's Solution 1,000 ml @ 100 mls/hr Q10H IV 05/09/19 11:30 05/09/19 11:38 Prochlorperazine Edisylate (Compazine) 10 mg PRN Q6HRS PRN IV NAUSEA/VOMITING 05/09/19 12:15 05/09/19 12:07 Imaging: Imaging: Head CT IMPRESSION: No evidence for acute intracranial process Multifocal sinus opacification may represent changes of sinusitis. CT A/P IMPRESSION: 1. Colon is partially distended with fluid, which may be seen with diarrheal state. 2. Colonic diverticulosis without evidence for acute diverticulitis. 3. No small or large bowel obstruction. 4. Diffuse hepatic hypoattenuation may be seen with hepatic steatosis. 5. No free or loculated abdominal or pelvic collection. PE: GEN: NAD HEENT: Atraumatic, PERRL LUNGS: CTAB HEART: RRR, ABD: NABS, S/ND/NT EXTREMITY: No edema SKIN: No rashes, no jaundice NEURO/PSYCH: A & O 3 A/P: A/P: Syncope Vomiting, diarrhea - after arriving at ER Leukocytosis Abnormal CT - partially distended colon w/ fluid GERD - on PPI CRC screen - UTD Diverticulosis, h/o diverticulitis S/p cholecystectomy Hepatic steatosis H/o gastric sleeve -- Unclear etiology of GI symptoms - other notes mention eating shrimp and Korean food; however, vomiting and diarrhea began after syncope. Await neurology opinion. ?cardiology also Continue PPI. Okay for diet as able. ?stool studies RON LOUIS May 09, 2019 12:57
[2019-05-09] MEDS: VENLAFAXINE 75 MG TABLET. PO SCH ×2 (14:05→20:59)
[2019-05-09 15:00] VITALS: BP 117/68
[2019-05-09] MEDS: KETOROLAC 15 MG/ML VIAL. IV PRN (18:47)
[2019-05-09 19:47] VITALS: BP 119/67
[2019-05-09] MEDS: DOCUSATE SODIUM 100 MG CAPSULE. PO SCH (19:56)
--- NOTE | 2019-05-09 20:07 | PDOC2 ---
NEUROLOGY CONSULT Date of Admission Date of Admission DATE: 05/09/19 TIME: 19:56 Reason for Consult Reason for Consult: IMPRESSION: Episodic LOC. Dizziness. Vomiting. Headache. Syncope. Seizure evaluation. UTI? DM Obesity. RECOMMENDATIONS/PLAN: EEG.MRI w/o contrast. Lab: see orders. Treat medical diseases. HISTORY OF THE PRESENT ILLNESS: This is a 59-y-old female admitted through the ER. She stated she was not feeling well in the past 2 weeks, but had 3 episodes of LOC, dizziness, generalized weakness, headaches, and vomiting since 4:00 a.m this morning. Her caught her form falling. She described that she got out of bed to urina te then fainted several times, doesn't remember parts of journey to the hospital, felt cold and was sweaty, extremities were tingling and she couldn't move them, says blood pressure was low. Vomiting and diarrhea started after arrival here. PMH: GERD, hypothyroidism, depression FH: No pertinent hx (denies GI cancers) PAST SURGERY HISTORY: Tonsillectomy, appendectomy, , cholecystectomy. ALLERGY: Unknown MEDICATIONS: Refer to MAR SOCIAL HISTORY: Lives at home with her . Smoke: <1 pack per day (socially when she has a glass of wine) ALCOHOL: social REVIEW OF SYSTEMS: Constitutional: Obese. Head: No traumatic brain or head injury. Skin: No edema, or rash. Ear: No infection. Eyes: No vision loss or color blindness. Nose: No bleeding or purulent discharges. Hearing: No hearing decrease. Neck: No injury. Breast: No history of cancer, masses,or discharges. Cardiac: No AL, arrhythmia,claudication. Pulmonary: smoking. Cough. GI: GERD. Urinary/genital: UTI. Endocrinologic: Diabetes Mellitus, hypothyroidism, obesity. Skeletomuscular: Generalized weakness. Neurological: see HP. Psychiatric: Denies drug use/abuse. Otherwise, not [id number] review of systems. PHYSICAL EXAMINATION: General appearance is in acute distress. HEENT: Normocephalic and nontraumatic. Eyes, nose, ears, and throat are unremarkable. Neck is supple. No lymphadenopathy. No crepitus. Cardiovascular: S1, S2, regular rate and rhythm. Pulmonary: Clear to auscultation bilaterally. Abdomen: Bowel sounds are positive. Extremities: No rash, lesions, or edema. No restriction of range of motion NEUROLOGICAL EXAMINATION: Drowsiness. Oriented to time, place and person. PERRL. EOMI. CN: no focal findings. Muscle tone: within normal. Muscle strength: 4+ DTR: 2- Plantar reflex: Flexor response bilaterally Gait: not examined in bed. Sensory exam: no abnormal findings. No cerebellar signs elicited. F-T-N test fine. Current Medications Current Medications Current Medications Sodium Chloride 1,000 ml @ 1,000 mls/hr 1X ONCE IV ; Start 05/09/19 at 06:00; Stop 05/09/19 at 06:59; Status UNV Sodium Chloride 500 ml @ 500 mls/hr 1X ONCE IV ; Start 05/09/19 at 06:00; Stop 05/09/19 at 06:59; Status UNV Sodium Chloride 1,000 ml @ 1,000 mls/hr 1X ONCE IV Last administered on 05/09/19at 06:07; Start 05/09/19 at 06:00; Stop 05/09/19 at 06:59; Status DC Sodium Chloride 500 ml @ 500 mls/hr 1X ONCE IV Last administered on 05/09/19at 06:07; Start 05/09/19 at 06:00; Stop 05/09/19 at 06:59; Status DC Ondansetron HCl (Zofran) 4 mg 1X ONCE IV Last administered on 05/09/19at 06:06; Start 05/09/19 at 06:15; Stop 05/09/19 at 06:16; Status DC Ketorolac Tromethamine (Toradol 30mg Vial) 30 mg 1X ONCE IV Last administered on 05/09/19at 06:27; Start 05/09/19 at 07:00; Stop 05/09/19 at 07:01; Status DC Fentanyl Citrate (Fentanyl 2ml Vial) 50 mcg 1X ONCE IV Last administered on 05/09/19at 07:57; Start 05/09/19 at 07:15; Stop 05/09/19 at 07:16; Status DC Dicyclomine HCl (Bentyl) 10 mg 1X ONCE PO Last administered on 05/09/19at 07:55; Start 05/09/19 at 07:15; Stop 05/09/19 at 07:16; Status DC Iohexol (Omnipaque 300 Mg/ml) 60 ml 1X ONCE IV Last administered on 05/09/19at 08:25; Start 05/09/19 at 08:00; Stop 05/09/19 at 08:01; Status DC Info (CONTRAST GIVEN -- Rx MONITORING) 1 each PRN DAILY PRN MC SEE COMMENTS; Start 05/09/19 at 08:00; Stop 05/11/19 at 07:59 Fentanyl Citrate (Fentanyl 2ml Vial) 50 mcg 1X ONCE IV Last administered on 05/09/19at 09:58; Start 05/09/19 at 09:45; Stop 05/09/19 at 09:46; Status DC Sodium Chloride 1,000 ml @ 150 mls/hr Q6H40M IV Last administered on 05/09/19at 10:07; Start 05/09/19 at 10:00; Stop 05/09/19 at 15:52; Status DC Cyanocobalamin (Vitamin B-12) 1,000 mcg ONCE ONCE IM Last administered on 05/09/19at 11:38; Start 05/09/19 at 10:00; Stop 05/09/19 at 10:01; Status DC Prochlorperazine Edisylate (Compazine) 10 mg PRN Q6HRS PRN IM NAUSEA/VOMITING; Start 05/09/19 at 11:30; Stop 05/09/19 at 12:05; Status DC Aspirin (Children'S Aspirin) 81 mg DAILY PO ; Start 05/09/19 at 12:00; Status Cancel Docusate Sodium (Colace) 100 mg HS PO ; Start 05/09/19 at 21:00 Levothyroxine Sodium (Synthroid) 100 mcg DAILYAC PO Last administered on 05/09/19at 11:39; Start 05/09/19 at 12:00 Pantoprazole Sodium (Protonix) 40 mg QHS PO ; Start 05/09/19 at 21:00 Venlafaxine HCl (Effexor) 75 mg TID PO Last administered on 05/09/19at 14:05; Start 05/09/19 at 14:00 Ringer's Solution 1,000 ml @ 150 mls/hr Q6H40M IV Last administered on 05/09/19at 11:38; Start 05/09/19 at 11:30 Ondansetron HCl (Zofran) 4 mg PRN Q6HRS PRN IV NAUSEA/VOMITING, 1st CHOICE; Start 05/09/19 at 11:30 Aspirin (Children'S Aspirin) 81 mg QHS PO ; Start 05/09/19 at 21:00 Prochlorperazine Edisylate (Compazine) 10 mg PRN Q6HRS PRN IV NAUSEA/VOMITING, 2nd CHOICE Last administered on 05/09/19at 18:47; Start 05/09/19 at 12:15 Ketorolac Tromethamine (Toradol 15mg Vial) 15 mg PRN Q8HRS PRN IV PAIN Last administered on 05/09/19at 18:47; Start 05/09/19 at 16:00; Stop 05/14/19 at 15:59 Active Scripts Active Reported Aspirin 81 Mg Tab.chew 81 Mg PO DAILY Docusate Sodium 100 Mg Capsule 1 Cap PO HS Omeprazole 40 Mg Capsule.dr 40 Mg PO HS Levothyroxine Sodium 100 Mcg Tablet 100 Mcg PO DAILYAC Venlafaxine Hcl Er (Venlafaxine Hcl) 225 Mg Tab.er.24 225 Mg PO HS Allergies Allergies: Allergies Coded Allergies Type Severity Reaction Last Updated Verified acetaminophen Adverse Reaction Mild ITCHING 05/09/19 Yes amoxicillin Adverse Reaction Mild DIARRHEA 05/09/19 Yes clavulanic acid Adverse Reaction Mild DIARRHEA 05/09/19 Yes hydrocodone Adverse Reaction Mild ITCHING 05/09/19 Yes ROS Review of System The patient denies any associated fevers, chills, headache, ear pain, rhinorrhea, sore throat, stiff neck, productive cough, chest pain, shortness of breath, back or flank pain, abdominal pain, nausea, vomiting, diarrhea, constipation, dysuria, rash, numbness, weakness, tingling, incontinence, difficulty ambulating, or diaphoresis. Physical Exam Physical Exam General: Well developed, well nourished, no acute distress, well appearing HEENT: Pupils equally round and reactive to light, EOMI, no discharge, normal conjunctiva Neck: Supple, no nuchal rigidity, no JVD, trachea midline, no tenderness Cardiac: RRR, no murmurs, no gallops, no rubs Chest/Lungs: CTAB, no wheeze, no rhonchi, no crackles Abdomen: soft, non-distended, no guarding, no peritoneal signs, non-tender Back: No tenderness Extremities: no edema, pulses intact, non-tender,capillary refill <3 sec bilateral upper and lower extremities, Neuro: Alert and oriented x 4, no focal deficits, normal speech Vitals Vitals: Vital Signs Date Time Temp Pulse Resp B/P (MAP) Pulse Ox O2 Delivery O2 Flow Rate FiO2 05/09/19 19:47 99.7 98 16 119/67 (84) 94 Room Air 99.7 Labs Labs Laboratory Tests Test 05/09/19 05:20 05/09/19 07:15 White Blood Count 14.8 x10^3/uL (4.0-11.0) Red Blood Count 4.35 x10^6/uL (3.50-5.40) Hemoglobin 13.6 g/dL (12.0-15.5) Hematocrit 40.3 % (36.0-47.0) Mean Corpuscular Volume 93 fL (79-100) Mean Corpuscular Hemoglobin 31 pg (25-35) Mean Corpuscular Hemoglobin Concent 34 g/dL (31-37) Red Cell Distribution Width 12.8 % (11.5-14.5) Platelet Count 285 x10^3/uL (140-400) Neutrophils (%) (Auto) 79 % (31-73) Lymphocytes (%) (Auto) 16 % (24-48) Monocytes (%) (Auto) 5 % (0-9) Eosinophils (%) (Auto) 0 % (0-3) Basophils (%) (Auto) 0 % (0-3) Neutrophils # (Auto) 11.7 x10^3uL (1.8-7.7) Lymphocytes # (Auto) 2.3 x10^3/uL (1.0-4.8) Monocytes # (Auto) 0.7 x10^3/uL (0.0-1.1) Eosinophils # (Auto) 0.0 x10^3/uL (0.0-0.7) Basophils # (Auto) 0.0 x10^3/uL (0.0-0.2) Sodium Level 141 mmol/L (136-145) Potassium Level 3.9 mmol/L (3.5-5.1) Chloride Level 103 mmol/L (98-107) Carbon Dioxide Level 27 mmol/L (21-32) Anion Gap 11 (6-14) Blood Urea Nitrogen 13 mg/dL (7-20) Creatinine 1.0 mg/dL (0.6-1.0) Estimated GFR (Cockcroft-Gault) 56.9 BUN/Creatinine Ratio 13 (6-20) Glucose Level 139 mg/dL (70-99) Calcium Level 9.5 mg/dL (8.5-10.1) Magnesium Level 2.2 mg/dL (1.8-2.4) Total Bilirubin 0.5 mg/dL (0.2-1.0) Aspartate Amino Transf (AST/SGOT) 21 U/L (15-37) Alanine Aminotransferase (ALT/SGPT) 33 U/L (14-59) Alkaline Phosphatase 89 U/L (46-116) Total Protein 7.5 g/dL (6.4-8.2) Albumin 3.7 g/dL (3.4-5.0) Albumin/Globulin Ratio 1.0 (1.0-1.7) Urine Collection Type Unknown Urine Color Yellow Urine Clarity Clear Urine pH 5.5 Urine Specific [place] 1.015 Urine Protein Negative mg/dL (NEG-TRACE) Urine Glucose (UA) Negative mg/dL (NEG) Urine Ketones (Stick) Negative mg/dL (NEG) Urine Blood Negative (NEG) Urine Nitrite Negative (NEG) Urine Bilirubin Negative (NEG) Urine Urobilinogen Dipstick 0.2 mg/dL (0.2 mg/dL) Urine Leukocyte Esterase Trace (NEG) Urine RBC 0 /HPF (0-2) Urine WBC 5-10 /HPF (0-4) Urine Squamous Epithelial Cells Mod /LPF Urine Bacteria Moderate /HPF (0-FEW) Urine Hyaline Casts Few /HPF Urine Mucus Marked /LPF Laboratory Tests Test 05/09/19 05:20 05/09/19 07:15 White Blood Count 14.8 x10^3/uL (4.0-11.0) Red Blood Count 4.35 x10^6/uL (3.50-5.40) Hemoglobin 13.6 g/dL (12.0-15.5) Hematocrit 40.3 % (36.0-47.0) Mean Corpuscular Volume 93 fL (79-100) Mean Corpuscular Hemoglobin 31 pg (25-35) Mean Corpuscular Hemoglobin Concent 34 g/dL (31-37) Red Cell Distribution Width 12.8 % (11.5-14.5) Platelet Count 285 x10^3/uL (140-400) Neutrophils (%) (Auto) 79 % (31-73) Lymphocytes (%) (Auto) 16 % (24-48) Monocytes (%) (Auto) 5 % (0-9) Eosinophils (%) (Auto) 0 % (0-3) Basophils (%) (Auto) 0 % (0-3) Neutrophils # (Auto) 11.7 x10^3uL (1.8-7.7) Lymphocytes # (Auto) 2.3 x10^3/uL (1.0-4.8) Monocytes # (Auto) 0.7 x10^3/uL (0.0-1.1) Eosinophils # (Auto) 0.0 x10^3/uL (0.0-0.7) Basophils # (Auto) 0.0 x10^3/uL (0.0-0.2) Sodium Level 141 mmol/L (136-145) Potassium Level 3.9 mmol/L (3.5-5.1) Chloride Level 103 mmol/L (98-107) Carbon Dioxide Level 27 mmol/L (21-32) Anion Gap 11 (6-14) Blood Urea Nitrogen 13 mg/dL (7-20) Creatinine 1.0 mg/dL (0.6-1.0) Estimated GFR (Cockcroft-Gault) 56.9 BUN/Creatinine Ratio 13 (6-20) Glucose Level 139 mg/dL (70-99) Calcium Level 9.5 mg/dL (8.5-10.1) Magnesium Level 2.2 mg/dL (1.8-2.4) Total Bilirubin 0.5 mg/dL (0.2-1.0) Aspartate Amino Transf (AST/SGOT) 21 U/L (15-37) Alanine Aminotransferase (ALT/SGPT) 33 U/L (14-59) Alkaline Phosphatase 89 U/L (46-116) Total Protein 7.5 g/dL (6.4-8.2) Albumin 3.7 g/dL (3.4-5.0) Albumin/Globulin Ratio 1.0 (1.0-1.7) Urine Collection Type Unknown Urine Color Yellow Urine Clarity Clear Urine pH 5.5 Urine Specific [place] 1.015 Urine Protein Negative mg/dL (NEG-TRACE) Urine Glucose (UA) Negative mg/dL (NEG) Urine Ketones (Stick) Negative mg/dL (NEG) Urine Blood Negative (NEG) Urine Nitrite Negative (NEG) Urine Bilirubin Negative (NEG) Urine Urobilinogen Dipstick 0.2 mg/dL (0.2 mg/dL) Urine Leukocyte Esterase Trace (NEG) Urine RBC 0 /HPF (0-2) Urine WBC 5-10 /HPF (0-4) Urine Squamous Epithelial Cells Mod /LPF Urine Bacteria Moderate /HPF (0-FEW) Urine Hyaline Casts Few /HPF Urine Mucus Marked /LPF BENNETT CEDILLO MD May 09, 2019 20:07
[2019-05-09] MEDS: PANTOPRAZOLE 40 MG TABLET.DR. PO SCH (20:59)
[2019-05-09] MEDS: ASPIRIN CHEWABLE 81 MG TABLET. PO SCH (21:00)
[2019-05-09] MEDS: ACETAMINOPHEN 325 MG TABLET. PO PRN (21:00)
[2019-05-09 23:55] VITALS: BP 108/67
[2019-05-10] MEDS: KETOROLAC 15 MG/ML VIAL. IV PRN (02:34)
[2019-05-10] MEDS: IV RINGERS,LACTATED 1000ML 1,000 ML IV SCH (02:34)
[2019-05-10 02:54] VITALS: BP 124/72
[2019-05-10] MEDS: LEVOTHYROXINE 100 MCG TABLET PO SCH (07:24)
[2019-05-10 07:48] VITALS: BP 126/73
[2019-05-10 07:54] LABS: CHOLESTEROL/HDL RATIO 3.7
[2019-05-10 08:06] LABS: BASO % 0 % (0-3); EOS % 0 % (0-3); HEMATOCRIT 33.9 % (36.0-47.0); HEMOGLOBIN 11.7 g/dL (12.0-15.5); LYMPH # 1.6 x10^3/uL (1.0-4.8); LYMPH % 38 % (24-48); MEAN CORPUSCULAR HEMOGLOBIN 32 pg (25-35); MEAN CORPUSCULAR HGB CONC 35 g/dL (31-37); MEAN CORPUSCULAR VOLUME 92 fL (79-100); MONO # 0.4 x10^3/uL (0.0-1.1); MONO % 8 % (0-9); NEUT # 2.3 x10^3uL (1.8-7.7); NEUT % 53 % (31-73); PLATELET COUNT 185 x10^3/uL (140-400); RED BLOOD COUNT 3.67 x10^6/uL (3.50-5.40); WHITE BLOOD COUNT 4.3 x10^3/uL (4.0-11.0)
[2019-05-10 08:24] LABS: ALBUMIN 2.6 g/dL (3.4-5.0); CALCIUM 8.1 mg/dL (8.5-10.1); CREATININE 0.6 mg/dL (0.6-1.0); GFR 102.7; POTASSIUM 3.6 mmol/L (3.5-5.1); TOTAL BILIRUBIN 0.4 mg/dL (0.2-1.0); TOTAL PROTEIN 5.2 g/dL (6.4-8.2)
[2019-05-10] MEDS: VENLAFAXINE 75 MG TABLET. PO SCH ×3 (09:13→20:27)
[2019-05-10] MEDS: ACETAMINOPHEN 325 MG TABLET. PO PRN ×2 (09:13→17:19)
[2019-05-10] MEDS ORDERED: HEPARIN PF 500 UNIT/5 ML DISP.SYRIN. IV ONE (09:15)
[2019-05-10] MEDS: ONDANSETRON PF 4 MG/2 ML VIAL. IV PRN ×2 (09:17→17:19)
--- NOTE | 2019-05-10 09:21 | PDOC ---
Objective: Objective: 1 stool charted. Note stool tests were ordered - uncollected. Vital Signs: Vital Signs Date Time Temp Pulse Resp B/P (MAP) Pulse Ox O2 Delivery O2 Flow Rate FiO2 05/10/19 02:54 97.8 77 16 124/72 (89) 97 Room Air 97.8 Labs: Laboratory Tests Test 05/10/19 07:10 White Blood Count 4.3 x10^3/uL Red Blood Count 3.67 x10^6/uL Hemoglobin 11.7 g/dL Hematocrit 33.9 % Mean Corpuscular Volume 92 fL Mean Corpuscular Hemoglobin 32 pg Mean Corpuscular Hemoglobin Concent 35 g/dL Red Cell Distribution Width 13.0 % Platelet Count 185 x10^3/uL Neutrophils (%) (Auto) 53 % Lymphocytes (%) (Auto) 38 % Monocytes (%) (Auto) 8 % Eosinophils (%) (Auto) 0 % Basophils (%) (Auto) 0 % Neutrophils # (Auto) 2.3 x10^3uL Lymphocytes # (Auto) 1.6 x10^3/uL Monocytes # (Auto) 0.4 x10^3/uL Eosinophils # (Auto) 0.0 x10^3/uL Basophils # (Auto) 0.0 x10^3/uL Sodium Level 146 mmol/L Potassium Level 3.6 mmol/L Chloride Level 111 mmol/L Carbon Dioxide Level 25 mmol/L Anion Gap 10 Blood Urea Nitrogen 9 mg/dL Creatinine 0.6 mg/dL Estimated GFR (Cockcroft-Gault) 102.7 BUN/Creatinine Ratio 15 Glucose Level 97 mg/dL Calcium Level 8.1 mg/dL Total Bilirubin 0.4 mg/dL Aspartate Amino Transf (AST/SGOT) 28 U/L Alanine Aminotransferase (ALT/SGPT) 36 U/L Alkaline Phosphatase 59 U/L Total Protein 5.2 g/dL Albumin 2.6 g/dL Albumin/Globulin Ratio 1.0 Triglycerides Level 88 mg/dL Cholesterol Level 122 mg/dL LDL Cholesterol, Calculated 71 mg/dL VLDL Cholesterol, Calculated 18 mg/dL Non-HDL Cholesterol Calculated 89 mg/dL HDL Cholesterol 33 mg/dL Cholesterol/HDL Ratio 3.7 PE: out of room - has orders for CXR, echocardiogram, EEG, and brain MRI A/P: Syncope Vomiting, diarrhea -- Out of room for testing, will return to see later. RON LOUIS May 10, 2019 09:21
--- NOTE | 2019-05-10 10:26 | RAD ---
Chest, 2 views, 05/10/2019: HISTORY: Cough, chills The heart size and pulmonary vascularity are normal. No pulmonary infiltrate is seen. There is no evidence of pleural fluid. Moderate spurring is present in the spine. IMPRESSION: No acute cardiopulmonary abnormality is detected. Electronically signed by: Huy Phillips MD (05/10/2019 10:23 AM) [facility]
--- NOTE | 2019-05-10 11:26 | PDOC ---
PROGRESS NOTES Chief Complaint Chief Complaint Syncope - likely vasovagal N/V/D - gastroenteritis S/p gastric sleeve - B12 deficiency - replaced Hypothyroidism - cont thyroid replacement Headaches - diarrhea History of Present Illness History of Present Illness Out having MRI and EEG ordered by neurology I agree that syncope most likely vasovagal, recent GI losses (n.v.d) Diarrhea one episode today per Headaches bother her, called last night for it Plan: start Imodium Start NSAID Celebrex for the headache H1 antagonists Flonase FEntanyl x 1 per pt request (helped from er) I provided copies of the CAT scan which shows sinusitis of the CT head sinuses CAT scan of abdomen and pelvis only shows stool or liquid in the colon likely diarrhea which is consistent with her clinical picture Vitals Vitals Vital Signs Date Time Temp Pulse Resp B/P (MAP) Pulse Ox O2 Delivery O2 Flow Rate FiO2 05/10/19 08:00 Room Air 05/10/19 07:48 97.7 75 18 126/73 (90) 94 97.7 Physical Exam General: Alert, Oriented X3, Cooperative, No acute distress Heart: Regular rate, Normal S1, Normal S2 Lungs: Clear Abdomen: Normal bowel sounds, Soft, No hepatosplenomegaly, No masses, Other (diffuse mild tenderness) Extremities: No clubbing, No cyanosis, No edema, Normal pulses, No ten derness/swelling Skin: No rashes, No breakdown, No significant lesion Labs LABS Laboratory Tests Test 05/10/19 07:10 White Blood Count 4.3 x10^3/uL (4.0-11.0) Red Blood Count 3.67 x10^6/uL (3.50-5.40) Hemoglobin 11.7 g/dL (12.0-15.5) Hematocrit 33.9 % (36.0-47.0) Mean Corpuscular Volume 92 fL (79-100) Mean Corpuscular Hemoglobin 32 pg (25-35) Mean Corpuscular Hemoglobin Concent 35 g/dL (31-37) Red Cell Distribution Width 13.0 % (11.5-14.5) Platelet Count 185 x10^3/uL (140-400) Neutrophils (%) (Auto) 53 % (31-73) Lymphocytes (%) (Auto) 38 % (24-48) Monocytes (%) (Auto) 8 % (0-9) Eosinophils (%) (Auto) 0 % (0-3) Basophils (%) (Auto) 0 % (0-3) Neutrophils # (Auto) 2.3 x10^3uL (1.8-7.7) Lymphocytes # (Auto) 1.6 x10^3/uL (1.0-4.8) Monocytes # (Auto) 0.4 x10^3/uL (0.0-1.1) Eosinophils # (Auto) 0.0 x10^3/uL (0.0-0.7) Basophils # (Auto) 0.0 x10^3/uL (0.0-0.2) Sodium Level 146 mmol/L (136-145) Potassium Level 3.6 mmol/L (3.5-5.1) Chloride Level 111 mmol/L (98-107) Carbon Dioxide Level 25 mmol/L (21-32) Anion Gap 10 (6-14) Blood Urea Nitrogen 9 mg/dL (7-20) Creatinine 0.6 mg/dL (0.6-1.0) Estimated GFR (Cockcroft-Gault) 102.7 BUN/Creatinine Ratio 15 (6-20) Glucose Level 97 mg/dL (70-99) Calcium Level 8.1 mg/dL (8.5-10.1) Total Bilirubin 0.4 mg/dL (0.2-1.0) Aspartate Amino Transf (AST/SGOT) 28 U/L (15-37) Alanine Aminotransferase (ALT/SGPT) 36 U/L (14-59) Alkaline Phosphatase 59 U/L (46-116) Total Protein 5.2 g/dL (6.4-8.2) Albumin 2.6 g/dL (3.4-5.0) Albumin/Globulin Ratio 1.0 (1.0-1.7) Triglycerides Level 88 mg/dL (0-150) Cholesterol Level 122 mg/dL (0-200) LDL Cholesterol, Calculated 71 mg/dL (0-100) VLDL Cholesterol, Calculated 18 mg/dL (0-40) Non-HDL Cholesterol Calculated 89 mg/dL (0-129) HDL Cholesterol 33 mg/dL (40-60) Cholesterol/HDL Ratio 3.7 Review of Systems Review of Systems Diarrhea, headache, otherwise rest of ROS 14 point negative Assessment and Plan Assessmemt and Plan Problems Medical Problems: (1) Acute gastroenteritis Status: Acute (2) Syncope Status: Acute Comment Review of Relevant I have reviewed the following items yolie (where applicable) has been applied. Labs Laboratory Tests Test 05/09/19 05:20 05/09/19 07:15 05/10/19 07:10 White Blood Count 14.8 x10^3/uL (4.0-11.0) 4.3 x10^3/uL (4.0-11.0) Red Blood Count 4.35 x10^6/uL (3.50-5.40) 3.67 x10^6/uL (3.50-5.40) Hemoglobin 13.6 g/dL (12.0-15.5) 11.7 g/dL (12.0-15.5) Hematocrit 40.3 % (36.0-47.0) 33.9 % (36.0-47.0) Mean Corpuscular Volume 93 fL (79-100) 92 fL (79-100) Mean Corpuscular Hemoglobin 31 pg (25-35) 32 pg (25-35) Mean Corpuscular Hemoglobin Concent 34 g/dL (31-37) 35 g/dL (31-37) Red Cell Distribution Width 12.8 % (11.5-14.5) 13.0 % (11.5-14.5) Platelet Count 285 x10^3/uL (140-400) 185 x10^3/uL (140-400) Neutrophils (%) (Auto) 79 % (31-73) 53 % (31-73) Lymphocytes (%) (Auto) 16 % (24-48) 38 % (24-48) Monocytes (%) (Auto) 5 % (0-9) 8 % (0-9) Eosinophils (%) (Auto) 0 % (0-3) 0 % (0-3) Basophils (%) (Auto) 0 % (0-3) 0 % (0-3) Neutrophils # (Auto) 11.7 x10^3uL (1.8-7.7) 2.3 x10^3uL (1.8-7.7) Lymphocytes # (Auto) 2.3 x10^3/uL (1.0-4.8) 1.6 x10^3/uL (1.0-4.8) Monocytes # (Auto) 0.7 x10^3/uL (0.0-1.1) 0.4 x10^3/uL (0.0-1.1) Eosinophils # (Auto) 0.0 x10^3/uL (0.0-0.7) 0.0 x10^3/uL (0.0-0.7) Basophils # (Auto) 0.0 x10^3/uL (0.0-0.2) 0.0 x10^3/uL (0.0-0.2) Sodium Level 141 mmol/L (136-145) 146 mmol/L (136-145) Potassium Level 3.9 mmol/L (3.5-5.1) 3.6 mmol/L (3.5-5.1) Chloride Level 103 mmol/L (98-107) 111 mmol/L (98-107) Carbon Dioxide Level 27 mmol/L (21-32) 25 mmol/L (21-32) Anion Gap 11 (6-14) 10 (6-14) Blood Urea Nitrogen 13 mg/dL (7-20) 9 mg/dL (7-20) Creatinine 1.0 mg/dL (0.6-1.0) 0.6 mg/dL (0.6-1.0) Estimated GFR (Cockcroft-Gault) 56.9 102.7 BUN/Creatinine Ratio 13 (6-20) 15 (6-20) Glucose Level 139 mg/dL (70-99) 97 mg/dL (70-99) Calcium Level 9.5 mg/dL (8.5-10.1) 8.1 mg/dL (8.5-10.1) Magnesium Level 2.2 mg/dL (1.8-2.4) Total Bilirubin 0.5 mg/dL (0.2-1.0) 0.4 mg/dL (0.2-1.0) Aspartate Amino Transf (AST/SGOT) 21 U/L (15-37) 28 U/L (15-37) Alanine Aminotransferase (ALT/SGPT) 33 U/L (14-59) 36 U/L (14-59) Alkaline Phosphatase 89 U/L (46-116) 59 U/L (46-116) Total Protein 7.5 g/dL (6.4-8.2) 5.2 g/dL (6.4-8.2) Albumin 3.7 g/dL (3.4-5.0) 2.6 g/dL (3.4-5.0) Albumin/Globulin Ratio 1.0 (1.0-1.7) 1.0 (1.0-1.7) Urine Collection Type Unknown Urine Color Yellow Urine Clarity Clear Urine pH 5.5 Urine Specific Mcconnell 1.015 Urine Protein Negative mg/dL (NEG-TRACE) Urine Glucose (UA) Negative mg/dL (NEG) Urine Ketones (Stick) Negative mg/dL (NEG) Urine Blood Negative (NEG) Urine Nitrite Negative (NEG) Urine Bilirubin Negative (NEG) Urine Urobilinogen Dipstick 0.2 mg/dL (0.2 mg/dL) Urine Leukocyte Esterase Trace (NEG) Urine RBC 0 /HPF (0-2) Urine WBC 5-10 /HPF (0-4) Urine Squamous Epithelial Cells Mod /LPF Urine Bacteria Moderate /HPF (0-FEW) Urine Hyaline Casts Few /HPF Urine Mucus Marked /LPF Triglycerides Level 88 mg/dL (0-150) Cholesterol Level 122 mg/dL (0-200) LDL Cholesterol, Calculated 71 mg/dL (0-100) VLDL Cholesterol, Calculated 18 mg/dL (0-40) Non-HDL Cholesterol Calculated 89 mg/dL (0-129) HDL Cholesterol 33 mg/dL (40-60) Cholesterol/HDL Ratio 3.7 Laboratory Tests Test 05/10/19 07:10 White Blood Count 4.3 x10^3/uL (4.0-11.0) Red Blood Count 3.67 x10^6/uL (3.50-5.40) Hemoglobin 11.7 g/dL (12.0-15.5) Hematocrit 33.9 % (36.0-47.0) Mean Corpuscular Volume 92 fL (79-100) Mean Corpuscular Hemoglobin 32 pg (25-35) Mean Corpuscular Hemoglobin Concent 35 g/dL (31-37) Red Cell Distribution Width 13.0 % (11.5-14.5) Platelet Count 185 x10^3/uL (140-400) Neutrophils (%) (Auto) 53 % (31-73) Lymphocytes (%) (Auto) 38 % (24-48) Monocytes (%) (Auto) 8 % (0-9) Eosinophils (%) (Auto) 0 % (0-3) Basophils (%) (Auto) 0 % (0-3) Neutrophils # (Auto) 2.3 x10^3uL (1.8-7.7) Lymphocytes # (Auto) 1.6 x10^3/uL (1.0-4.8) Monocytes # (Auto) 0.4 x10^3/uL (0.0-1.1) Eosinophils # (Auto) 0.0 x10^3/uL (0.0-0.7) Basophils # (Auto) 0.0 x10^3/uL (0.0-0.2) Sodium Level 146 mmol/L (136-145) Potassium Level 3.6 mmol/L (3.5-5.1) Chloride Level 111 mmol/L (98-107) Carbon Dioxide Level 25 mmol/L (21-32) Anion Gap 10 (6-14) Blood Urea Nitrogen 9 mg/dL (7-20) Creatinine 0.6 mg/dL (0.6-1.0) Estimated GFR (Cockcroft-Gault) 102.7 BUN/Creatinine Ratio 15 (6-20) Glucose Level 97 mg/dL (70-99) Calcium Level 8.1 mg/dL (8.5-10.1) Total Bilirubin 0.4 mg/dL (0.2-1.0) Aspartate Amino Transf (AST/SGOT) 28 U/L (15-37) Alanine Aminotransferase (ALT/SGPT) 36 U/L (14-59) Alkaline Phosphatase 59 U/L (46-116) Total Protein 5.2 g/dL (6.4-8.2) Albumin 2.6 g/dL (3.4-5.0) Albumin/Globulin Ratio 1.0 (1.0-1.7) Triglycerides Level 88 mg/dL (0-150) Cholesterol Level 122 mg/dL (0-200) LDL Cholesterol, Calculated 71 mg/dL (0-100) VLDL Cholesterol, Calculated 18 mg/dL (0-40) Non-HDL Cholesterol Calculated 89 mg/dL (0-129) HDL Cholesterol 33 mg/dL (40-60) Cholesterol/HDL Ratio 3.7 Medications Current Medications Sodium Chloride 1,000 ml @ 1,000 mls/hr 1X ONCE IV ; Start 05/09/19 at 06:00; Stop 05/09/19 at 06:59; Status UNV Sodium Chloride 500 ml @ 500 mls/hr 1X ONCE IV ; Start 05/09/19 at 06:00; Stop 05/09/19 at 06:59; Status UNV Sodium Chloride 1,000 ml @ 1,000 mls/hr 1X ONCE IV Last administered on 05/09/19at 06:07; Start 05/09/19 at 06:00; Stop 05/09/19 at 06:59; Status DC Sodium Chloride 500 ml @ 500 mls/hr 1X ONCE IV Last administered on 05/09/19at 06:07; Start 05/09/19 at 06:00; Stop 05/09/19 at 06:59; Status DC Ondansetron HCl (Zofran) 4 mg 1X ONCE IV Last administered on 05/09/19at 06:06; Start 05/09/19 at 06:15; Stop 05/09/19 at 06:16; Status DC Ketorolac Tromethamine (Toradol 30mg Vial) 30 mg 1X ONCE IV Last administered on 05/09/19at 06:27; Start 05/09/19 at 07:00; Stop 05/09/19 at 07:01; Status DC Fentanyl Citrate (Fentanyl 2ml Vial) 50 mcg 1X ONCE IV Last administered on 11/15at 07:57; Start 05/09/19 at 07:15; Stop 05/09/19 at 07:16; Status DC Dicyclomine HCl (Bentyl) 10 mg 1X ONCE PO Last administered on 05/09/19at 07:55; Start 05/09/19 at 07:15; Stop 05/09/19 at 07:16; Status DC Iohexol (Omnipaque 300 Mg/ml) 60 ml 1X ONCE IV Last administered on 05/09/19at 08:25; Start 05/09/19 at 08:00; Stop 05/09/19 at 08:01; Status DC Info (CONTRAST GIVEN -- Rx MONITORING) 1 each PRN DAILY PRN MC SEE COMMENTS; Start 05/09/19 at 08:00; Stop 05/11/19 at 07:59 Fentanyl Citrate (Fentanyl 2ml Vial) 50 mcg 1X ONCE IV Last administered on 05/09/19 09:58; Start 05/09/19 at 09:45; Stop 05/09/19 at 09:46; Status DC Sodium Chloride 1,000 ml @ 150 mls/hr Q6H40M IV Last administered on 05/09/19at 10:07; Start 05/09/19 at 10:00; Stop 05/09/19 at 15:52; Status DC Cyanocobalamin (Vitamin B-12) 1,000 mcg ONCE ONCE IM Last administered on 05/09/19at 11:38; Start 05/09/19 at 10:00; Stop 05/09/19 at 10:01; Status DC Prochlorperazine Edisylate (Compazine) 10 mg PRN Q6HRS PRN IM NAUSEA/VOMITING; Start 05/09/19 at 11:30; Stop 05/09/19 at 12:05; Status DC Aspirin (Children'S Aspirin) 81 mg DAILY PO ; Start 05/09/19 at 12:00; Status Cancel Docusate Sodium (Colace) 100 mg HS PO ; Start 05/09/19 at 21:00 Levothyroxine Sodium (Synthroid) 100 mcg DAILYAC PO Last administered on 05/10/19 07:24; Start 05/09/19 at 12:00 Pantoprazole Sodium (Protonix) 40 mg QHS PO Last administered on 05/09/19at 20:59; Start 05/09/19 at 21:00 Venlafaxine HCl (Effexor) 75 mg TID PO Last administered on 05/10/19 09:13; Start 05/09/19 at 14:00 Ringer's Solution 1,000 ml @ 150 mls/hr Q6H40M IV Last administered on 05/10/19at 02:34; Start 05/09/19 at 11:30 Ondansetron HCl (Zofran) 4 mg PRN Q6HRS PRN IV NAUSEA/VOMITING, 1st CHOICE Last administered on 05/10/19at 09:17; Start 05/09/19 at 11:30 Aspirin (Children'S Aspirin) 81 mg QHS PO Last administered on 05/09/19 21:00; Start 05/09/19 at 21:00 Prochlorperazine Edisylate (Compazine) 10 mg PRN Q6HRS PRN IV NAUSEA/VOMITING, 2nd CHOICE Last administered on 05/09/19at 18:47; Start 05/09/19 at 12:15 Ketorolac Tromethamine (Toradol 15mg Vial) 15 mg PRN Q8HRS PRN IV PAIN Last administered on 05/10/19 02:34; Start 05/09/19 at 16:00; Stop 05/14/19 at 15:59 Acetaminophen (Tylenol) 650 mg PRN Q6HRS PRN PO FEVER Last administered on 05/10/19at 09:13; Start 05/09/19 at 20:45 Active Scripts Active Reported Aspirin 81 Mg Tab.chew 81 Mg PO DAILY Docusate Sodium 100 Mg Capsule 1 Cap PO HS Omeprazole 40 Mg Capsule.dr 40 Mg PO HS Levothyroxine Sodium 100 Mcg Tablet 100 Mcg PO DAILYAC Venlafaxine Hcl Er (Venlafaxine Hcl) 225 Mg Tab.er.24 225 Mg PO HS Vitals/I & O Vital Sign - Last 24 Hours 05/09/19 05/09/19 05/09/19 05/09/19 15:00 19:47 20:00 23:55 Temp 102.4 99.7 98.1 102.4 99.7 98.1 Pulse 103 98 68 Resp 20 16 16 B/P (MAP) 117/68 (84) 119/67 (84) 108/67 (81) Pulse Ox 94 94 97 O2 Delivery Room Air Room Air Room Air Room Air 05/10/19 05/10/19 05/10/19 02:54 07:48 08:00 Temp 97.8 97.7 97.8 97.7 Pulse 77 75 Resp 16 18 B/P (MAP) 124/72 (89) 126/73 (90) Pulse Ox 97 94 O2 Delivery Room Air Room Air Room Air Intake and Output 05/09/19 05/09/19 05/10/19 15:00 23:00 07:00 Intake Total 1700 ml 600 ml 200 ml Output Total 600 ml Balance 1700 ml 600 ml -400 ml VIRGILIO BARROW MD May 10, 2019 11:26
[2019-05-10] MEDS ORDERED: CETI10TA16 PO (11:28)
[2019-05-10] MEDS ORDERED: FLUT16SP NS (11:28)
[2019-05-10] MEDS ORDERED: NAPR-683 PO (11:28)
[2019-05-10] MEDS ORDERED: fentaNYL PF VIAL 100 MCG/2 ML VIAL IV ONE (11:30)
[2019-05-10] MEDS ORDERED: LOPERAMIDE 2 MG CAPSULE PO PRN (11:30)
[2019-05-10 11:45] VITALS: BP 132/91
--- NOTE | 2019-05-10 12:01 | EEG ---
DATE OF SERVICE: 05/10/2019 EEG NUMBER: [id number] OBJECTIVE: This is a 59-year-old female patient who had 3 episodes of loss of consciousness, unresponsiveness and confusion. EEG was requested to help rule out seizure. METHODS: Twenty electrodes were applied according to the international 10-20 electrode placement system. EKG monitoring, hyperventilation, intermittent photic stimulation, monopolar and bipolar montages are routinely utilized. The record was obtained on a digital system with video monitoring. FINDINGS: 1. Background: The patient was recorded in the awake, drowsy, and sleep states. The overall background amplitude is 10-30 microvolts. A posterior dominant rhythm of 8 Hz is observed. 2. Abnormalities: No specific epileptiform discharge or electrographic seizure is seen. No focal or diffuse slowing. 3. Activation: Hyperventilation was performed with good efforts and normal response. Intermittent photic stimulation was performed with photic driving. No specific epileptiform discharge or electrographic seizure induced by hyperventilation or intermittent photic stimulation. IMPRESSION: This EEG is a normal study for the awake, drowsy, and sleep states. No focal, lateralizing, specific epileptiform discharge or electrographic seizure is seen. BENNETT CEDILLO MD DR: HELENA/michel JOB#: [id number] / [id number] NICO
--- NOTE | 2019-05-10 12:07 | RAD ---
MRI of the brain without contrast 05/10/2019 Clinical History: Dizziness. Weakness. Loss of consciousness. Syncope. Technique: Unenhanced T1-weighted sagittal and axial, T2-weighted axial and coronal and FLAIR, gradient echo and diffusion-weighted axial images of the brain were obtained. Findings: Comparison is made to the patient's CT scan of the head dated 05/09/2019. Additional comparison is made to patient's MRI of the brain dated 04/16/2009. The ventricles and sulci are within normal limits in size and configuration. Patchy and several small focal areas of increased signal intensity are seen within the periventricular and subcortical white matter of both cerebral hemispheres on the FLAIR and T2-weighted images consistent with areas of very mild small vessel ischemic disease. These are unchanged. No acute parenchymal abnormality is seen. No extra-axial fluid collection is seen. There is no MRI evidence of acute ischemia/infarction. Mild to moderate mucosal thickening is seen scattered throughout the paranasal sinuses. Small fluid levels are seen involving both maxillary sinuses, left greater than right. There is a minimal right mastoid effusion. Normal flow voids are seen within the major vascular structures surrounding the brain parenchyma. Impression: No acute parenchymal abnormality is seen. Electronically signed by: Keenan Franks MD (05/10/2019 12:04 PM) [id number]
--- NOTE | 2019-05-10 12:07 | NUR ---
SW following pt for anticipated dc needs. Chart reviewed and discussed with RN. Pt lives at home with spouse. No SW needs noted at this time.
[2019-05-10] MEDS: FLUTICASONE 50MCG/NASAL SPRAY 16GM BOTTLE. NS SCH (12:24)
[2019-05-10] MEDS: CETIRIZINE HCL 10 MG TABLET. PO SCH (12:24)
[2019-05-10] MEDS: NAPROXEN 500 MG TABLET PO SCH ×2 (12:25→20:27)
--- NOTE | 2019-05-10 12:28 | CARD ---
MR#: [id number] Date of Study: 05/10/2019 Ordering Physician: CHAZ JUAREZ, Referring Physician: CHAZ JUAREZ, Tech: Margi Johnston APPROVED REPORT EXAM: Two-dimensional and M-mode echocardiogram with Doppler and color Doppler. Other Information Quality : AverageHR: 67bpm INDICATION Syncope 2D DIMENSIONS RVDd3.0 (2.9-3.5cm)Left Atrium(2D)3.0 (1.6-4.0cm) IVSd1.1 (0.7-1.1cm)Aortic Root(2D)2.9 (2.0-3.7cm) LVDd4.3 (3.9-5.9cm)LVOT Diameter2.0 (1.8-2.4cm) PWd1.0 (0.7-1.1cm)LVDs3.1 (2.5-4.0cm) FS (%) 27.1 %SV44.1 ml LVEF(%)53.2 (>50%) Aortic Valve AoV Peak Jameel.147.4cm/sAoV VTI29.8cm AO Peak GR.8.7mmHgLVOT Peak Jameel.108.1cm/s AO Mean GR.4mmHgAVA (VMAX)2.26cm2 Mitral Valve MV E Fpqxtumm58.7cm/sMV DECEL [id number] MV A Xivypiwl62.3cm/sE/A Ratio1.0 Pulmonary Valve PV Peak Dsqnnleg49.5cm/s Tricuspid Valve TR P. Xltdnrnp461yu/sRAP [id number] TR Peak Gr.89lvXkFDJO90wfQd Pulmonary Vein S1 Lvcrfxns05.3cm/sD2 Mwkohpvr67.2cm/s PVa [id number] LEFT VENTRICLE The left ventricle is normal size. There is normal left ventricular wall thickness. The left ventricu lar systolic function is normal. The Ejection Fraction is 55-60%. There is normal LV segmental wall m otion. Transmitral Doppler flow pattern is Grade II-pseudonormal filling dynamics. RIGHT VENTRICLE The right ventricle is normal size. There is normal right ventricular wall thickness. The right ventr icular systolic function is normal. ATRIA The left atrium size is normal. The right atrium size is normal. The interatrial septum is intact wit h no evidence for an atrial septal defect or patent foramen ovale as noted on 2-D or Doppler imaging. AORTIC VALVE The aortic valve is thickened but opens well. Doppler and Color Flow revealed no significant aortic r egurgitation. There is no significant aortic valvular stenosis. MITRAL VALVE The mitral valve is normal in structure and function. There is no evidence of mitral valve prolapse. There is no mitral valve stenosis. Doppler and Color-flow revealed trace mitral regurgitation. TRICUSPID VALVE The tricuspid valve is normal in structure and function. Doppler and Color Flow revealed trace tricus pid regurgitation with an estimated PAP of 23 mmHg. There is no tricuspid valve stenosis. PULMONIC VALVE The pulmonic valve is not well visualized. Doppler and Color Flow revealed no pulmonic valvular regur gitation. GREAT VESSELS The aortic root is normal in size. The IVC is normal in size and collapses >50% with inspiration. PERICARDIAL EFFUSION There is no evidence of significant pericardial effusion. Critical Notification Critical Value: No <Conclusion> The left ventricular systolic function is normal. The Ejection Fraction is 55-60%. There is normal LV segmental wall motion. Trace mitral regurgitation. Trace tricuspid regurgitation with an estimated PAP of 23 mmHg. There is no evidence of significant pericardial effusion. Signed by : Darrin Hi, Electronically Approved : 05/10/2019 12:28:14
[2019-05-10 13:01] LABS: BARBITURATES NEG (NEG); BENZODIAZEPINES POS (NEG); CANNABINOIDS NEG (NEG); COCAINE NEG (NEG); METHADONE NEG (NEG); OPIATES NEG (NEG); PHENCYCLIDINE NEG (NEG)
[2019-05-10 13:02] LABS: AMPHETAMINE/METHAMPHETAMINE NEG (NEG)
[2019-05-10 15:40] VITALS: BP 116/72
--- NOTE | 2019-05-10 18:31 | PDOC ---
PROGRESS NOTES Assessment Assessment Episodic LOC. Dizziness. Vomiting. Headache. Syncope. No evidence of seizure. UTI? DM Obesity. No evidence of acute CVA this time. RECOMMENDATIONS/PLAN: Treat medical diseases. OT/PT. Discussed with her family at bedside on 05/10/19. EEG On 05/10/19: Normal. HISTORY OF THE PRESENT ILLNESS: This is a 59-y-old female admitted through the ER. She stated she was not feeling well in the past 2 weeks, but had 3 episodes of LOC, dizziness, generalized weakness, headaches, and vomiting since 4:00 a.m this morning. Her caught her form falling. She described that she got out of bed to urinate then fainted several times, doesn't remember parts of journey to the hospital, felt cold and was sweaty, extremities were tingling and she couldn't move them, says blood pressure was low. Vomiting and diarrhea started after arrival here. PMH: GERD, hypothyroidism, depression FH: No pertinent hx (denies GI cancers) PAST SURGERY HISTORY: Tonsillectomy, appendectomy, , cholecystectomy. ALLERGY: Unknown MEDICATIONS: Refer to MAR SOCIAL HISTORY: Lives at home with her . Smoke: <1 pack per day (socially when she has a glass of wine) ALCOHOL: social REVIEW OF SYSTEMS: Constitutional: Obese. Head: No traumatic brain or head injury. Skin: No edema, or rash. Ear: No infection. Eyes: No vision loss or color blindness. Nose: No bleeding or purulent discharges. Hearing: No hearing decrease. Neck: No injury. Breast: No history of cancer, masses,or discharges. Cardiac: No MO, arrhythmia,claudication. Pulmonary: smoking. Cough. GI: GERD. Urinary/genital: UTI. Endocrinologic: Diabetes Mellitus, hypothyroidism, obesity. Skeletomuscular: Generalized weakness. Neurological: see HP. Psychiatric: Denies drug use/abuse. Otherwise, not [id number] review of systems. PHYSICAL EXAMINATION: General appearance is in no acute distress. HEENT: Normocephalic and nontraumatic. Eyes, nose, ears, and throat are unremarkable. Neck is supple. No lymphadenopathy. No crepitus. Cardiovascular: S1, S2, regular rate and rhythm. Pulmonary: Clear to auscultation bilaterally. Abdomen: Bowel sounds are positive. Extremities: No rash, lesions, or edema. No restriction of range of motion NEUROLOGICAL EXAMINATION: Awake. Oriented to time, place and person. PERRL. EOMI. CN: no focal findings. Muscle tone: within normal. Muscle strength: 5 DTR: 2- Plantar reflex: Flexor response bilaterally Gait: not examined in bed. Sensory exam: no abnormal findings. No cerebellar signs elicited. F-T-N test fine. Objective Objective Vital Signs Date Time Temp Pulse Resp B/P (MAP) Pulse Ox O2 Delivery O2 Flow Rate FiO2 05/10/19 15:40 97.8 71 16 116/72 (87) 96 Room Air 97.8 Intake and Output 05/10/19 07:00 Intake Total 2500 ml Output Total 600 ml Balance 1900 ml Intake Oral 1000 ml IV Total 1500 ml Output Urine Total 600 ml # Voids 1 # Bowel Movements 1 Vitals Signs Vitals VS - Last 72 Hours, by Label Date Time Temp Pulse Resp B/P (MAP) Pulse Ox O2 Delivery O2 Flow Rate FiO2 05/10/19 15:40 97.8 71 16 116/72 (87) 96 Room Air 97.8 05/10/19 14:55 97 Room Air 05/10/19 14:25 Room Air 05/10/19 11:45 98.1 72 20 132/91 (105) 97 Room Air 98.1 05/10/19 08:00 Room Air 05/10/19 07:48 97.7 75 18 126/73 (90) 94 Room Air 97.7 05/10/19 02:54 97.8 77 16 124/72 (89) 97 Room Air 97.8 05/09/19 23:55 98.1 68 16 108/67 (81) 97 Room Air 98.1 05/09/19 20:00 Room Air 05/09/19 19:47 99.7 98 16 119/67 (84) 94 Room Air 99.7 05/09/19 15:00 102.4 103 20 117/68 (84) 94 Room Air 102.4 05/09/19 10:42 Room Air 05/09/19 10:30 97.9 79 20 112/76 (88) 96 Room Air 97.9 05/09/19 10:00 82 21 96/69 (78) 99 Room Air 05/09/19 09:58 16 98 Room Air 05/09/19 09:30 80 20 96 Room Air 05/09/19 09:00 84 20 96 Room Air 05/09/19 08:00 80 23 107/76 (86) 96 Room Air 05/09/19 07:57 82 22 107/76 (86) 97 Room Air 05/09/19 07:57 14 98 Room Air 05/09/19 07:27 82 16 108/77 (87) 97 Room Air Laboratory Laboratory Laboratory Tests Test 05/10/19 07:10 05/10/19 12:40 White Blood Count 4.3 x10^3/uL (4.0-11.0) Red Blood Count 3.67 x10^6/uL (3.50-5.40) Hemoglobin 11.7 g/dL (12.0-15.5) Hematocrit 33.9 % (36.0-47.0) Mean Corpuscular Volume 92 fL (79-100) Mean Corpuscular Hemoglobin 32 pg (25-35) Mean Corpuscular Hemoglobin Concent 35 g/dL (31-37) Red Cell Distribution Width 13.0 % (11.5-14.5) Platelet Count 185 x10^3/uL (140-400) Neutrophils (%) (Auto) 53 % (31-73) Lymphocytes (%) (Auto) 38 % (24-48) Monocytes (%) (Auto) 8 % (0-9) Eosinophils (%) (Auto) 0 % (0-3) Basophils (%) (Auto) 0 % (0-3) Neutrophils # (Auto) 2.3 x10^3uL (1.8-7.7) Lymphocytes # (Auto) 1.6 x10^3/uL (1.0-4.8) Monocytes # (Auto) 0.4 x10^3/uL (0.0-1.1) Eosinophils # (Auto) 0.0 x10^3/uL (0.0-0.7) Basophils # (Auto) 0.0 x10^3/uL (0.0-0.2) Sodium Level 146 mmol/L (136-145) Potassium Level 3.6 mmol/L (3.5-5.1) Chloride Level 111 mmol/L (98-107) Carbon Dioxide Level 25 mmol/L (21-32) Anion Gap 10 (6-14) Blood Urea Nitrogen 9 mg/dL (7-20) Creatinine 0.6 mg/dL (0.6-1.0) Estimated GFR (Cockcroft-Gault) 102.7 BUN/Creatinine Ratio 15 (6-20) Glucose Level 97 mg/dL (70-99) Calcium Level 8.1 mg/dL (8.5-10.1) Total Bilirubin 0.4 mg/dL (0.2-1.0) Aspartate Amino Transf (AST/SGOT) 28 U/L (15-37) Alanine Aminotransferase (ALT/SGPT) 36 U/L (14-59) Alkaline Phosphatase 59 U/L (46-116) Total Protein 5.2 g/dL (6.4-8.2) Albumin 2.6 g/dL (3.4-5.0) Albumin/Globulin Ratio 1.0 (1.0-1.7) Triglycerides Level 88 mg/dL (0-150) Cholesterol Level 122 mg/dL (0-200) LDL Cholesterol, Calculated 71 mg/dL (0-100) VLDL Cholesterol, Calculated 18 mg/dL (0-40) Non-HDL Cholesterol Calculated 89 mg/dL (0-129) HDL Cholesterol 33 mg/dL (40-60) Cholesterol/HDL Ratio 3.7 Urine Opiates Screen Neg (NEG) Urine Methadone Screen Neg (NEG) Urine Barbiturates Neg (NEG) Urine Phencyclidine Screen Neg (NEG) Urine Amphetamine/Methamphetamine Neg (NEG) Urine Benzodiazepines Screen Pos (NEG) Urine Cocaine Screen Neg (NEG) Urine Cannabinoids Screen Neg (NEG) Urine Ethyl Alcohol Neg (NEG) Microbiology 05/09/19 Blood Culture - Preliminary, Resulted NO GROWTH AFTER 1 DAY 05/10/19 Fecal Leukocyte Stain - Final, Complete Medication Medications Current Medications Acetaminophen (Tylenol) 650 mg PRN Q6HRS PRN PO FEVER Last administered on 05/10/19at 17:19; Start 05/09/19 at 20:45 Aspirin (Children'S Aspirin) 81 mg QHS PO Last administered on 05/09/19at 21:00; Start 05/09/19 at 21:00 Cetirizine HCl (ZyrTEC) 10 mg DAILY PO Last administered on 05/10/19at 12:24; Start 05/10/19 at 11:30 Docusate Sodium (Colace) 100 mg HS PO ; Start 05/09/19 at 21:00 Fentanyl Citrate (Fentanyl 2ml Vial) 50 mcg 1X ONCE IV Last administered on 05/10/19 14:25; Start 05/10/19 at 11:30; Stop 05/10/19 at 11:31; Status DC Fluticasone Propionate (Flonase) 2 spray DAILY NS Last administered on 05/10/19 12:24; Start 05/10/19 at 12:00 Loperamide HCl (Imodium) 2 mg PRN Q15MIN PRN PO DIARRHEA; Start 05/10/19 at 11:30 Naproxen (Naprosyn) 500 mg BID PO Last administered on 05/10/19 12:25; Start 05/10/19 at 11:30 Pantoprazole Sodium (Protonix) 40 mg QHS PO Last administered on 05/09/19at 20:59; Start 05/09/19 at 21:00 Comment Review of Relevant I have reviewed the following items yolie (where applicable) has been applied. BENNETT CEDILLO MD May 10, 2019 18:31
[2019-05-10 19:06] VITALS: BP 115/73
[2019-05-10] MEDS: ASPIRIN CHEWABLE 81 MG TABLET. PO SCH (20:27)
[2019-05-10] MEDS: DOCUSATE SODIUM 100 MG CAPSULE. PO SCH (20:28)
[2019-05-10] MEDS: PANTOPRAZOLE 40 MG TABLET.DR. PO SCH (20:28)
[2019-05-10 23:21] VITALS: BP 123/75
[2019-05-11 03:47] VITALS: BP 109/81
[2019-05-11] MEDS: ACETAMINOPHEN 325 MG TABLET. PO PRN ×2 (06:00→14:29)
[2019-05-11] MEDS: LEVOTHYROXINE 100 MCG TABLET PO SCH (06:00)
[2019-05-11 07:45] VITALS: BP 126/72
[2019-05-11] MEDS: FLUTICASONE 50MCG/NASAL SPRAY 16GM BOTTLE. NS SCH (09:08)
[2019-05-11] MEDS: ASPIRIN CHEWABLE 81 MG TABLET. PO SCH (09:09)
[2019-05-11] MEDS: VENLAFAXINE 75 MG TABLET. PO SCH ×2 (09:09→14:26)
[2019-05-11] MEDS: NAPROXEN 500 MG TABLET PO SCH (09:09)
[2019-05-11] MEDS: CETIRIZINE HCL 10 MG TABLET. PO SCH (09:09)
--- NOTE | 2019-05-11 09:30 | PDOC ---
PROGRESS NOTES Chief Complaint Chief Complaint Syncope - likely vasovagal N/V/D - gastroenteritis S/p gastric sleeve - B12 deficiency - replaced Hypothyroidism - cont thyroid replacement Headaches - diarrhea History of Present Illness History of Present Illness MRI and EEG ordered by neurology I agree that syncope most likely vasovagal, recent GI losses (n.v.d) Diarrhea one episode today per Headaches bother her, Plan: PRN start Imodium Start NSAID Celebrex for the headache H1 antagonists Flonase FEntanyl x 1 per pt request (helped from er) I provided copies of the CAT scan which shows sinusitis of the CT head sinuses CAT scan of abdomen and pelvis only shows stool or liquid in the colon MRI of the brain without contrast 05/10/2019 Clinical History: Dizziness. Weakness. Loss of consciousness. Syncope. Technique: Unenhanced T1-weighted sagittal and axial, T2-weighted axial and coronal and FLAIR, gradient echo and diffusion-weighted axial images of the brain were obtained. Findings: Comparison is made to the patient's CT scan of the head dated 05/09/2019. Additional comparison is made to patient's MRI of the brain dated 04/16/2009. The ventricles and sulci are within normal limits in size and configuration. Patchy and several small focal areas of increased signal intensity are seen within the periventricular and subcortical white matter of both cerebral hemispheres on the FLAIR and T2-weighted images consistent with areas of very mild small vessel ischemic disease. These are unchanged. No acute parenchymal abnormality is seen. No extra-axial fluid collection is seen. There is no MRI evidence of acute ischemia/infarction. Mild to moderate mucosal thickening is seen scattered throughout the paranasal sinuses. Small fluid levels are seen involving both maxillary sinuses, left greater than right. There is a minimal right mastoid effusion. Normal flow voids are seen within the major vascular structures surrounding the brain parenchyma. Impression: No acute parenchymal abnormality is seen. Vitals Vitals Vital Signs Date Time Temp Pulse Resp B/P (MAP) Pulse Ox O2 Delivery O2 Flow Rate FiO2 05/11/19 08:00 Room Air 05/11/19 07:45 98.4 73 20 126/72 (90) 96 98.4 Physical Exam General: Alert, Oriented X3, Cooperative, No acute distress Heart: Regular rate, Normal S1, Normal S2 Lungs: Clear Abdomen: Normal bowel sounds, Soft, No hepatosplenomegaly, No masses, Other (diffuse mild tenderness) Extremities: No clubbing, No cyanosis, No edema, Normal pulses, No tenderness/swelling Skin: No rashes, No breakdown, No significant lesion Labs LABS Laboratory Tests Test 05/10/19 12:40 Urine Opiates Screen Neg (NEG) Urine Methadone Screen Neg (NEG) Urine Barbiturates Neg (NEG) Urine Phencyclidine Screen Neg (NEG) Urine Amphetamine/Methamphetamine Neg (NEG) Urine Benzodiazepines Screen Pos (NEG) Urine Cocaine Screen Neg (NEG) Urine Cannabinoids Screen Neg (NEG) Urine Ethyl Alcohol Neg (NEG) Assessment and Plan Assessmemt and Plan Problems Medical Problems: (1) Acute gastroenteritis Status: Acute (2) Syncope Status: Acute Comment Review of Relevant I have reviewed the following items yolie (where applicable) has been applied. Labs Laboratory Tests Test 05/10/19 07:00 05/10/19 07:10 05/10/19 12:40 Clostridium difficile Toxin B Gene Negative (Negative) White Blood Count 4.3 x10^3/uL (4.0-11.0) Red Blood Count 3.67 x10^6/uL (3.50-5.40) Hemoglobin 11.7 g/dL (12.0-15.5) Hematocrit 33.9 % (36.0-47.0) Mean Corpuscular Volume 92 fL (79-100) Mean Corpuscular Hemoglobin 32 pg (25-35) Mean Corpuscular Hemoglobin Concent 35 g/dL (31-37) Red Cell Distribution Width 13.0 % (11.5-14.5) Platelet Count 185 x10^3/uL (140-400) Neutrophils (%) (Auto) 53 % (31-73) Lymphocytes (%) (Auto) 38 % (24-48) Monocytes (%) (Auto) 8 % (0-9) Eosinophils (%) (Auto) 0 % (0-3) Basophils (%) (Auto) 0 % (0-3) Neutrophils # (Auto) 2.3 x10^3uL (1.8-7.7) Lymphocytes # (Auto) 1.6 x10^3/uL (1.0-4.8) Monocytes # (Auto) 0.4 x10^3/uL (0.0-1.1) Eosinophils # (Auto) 0.0 x10^3/uL (0.0-0.7) Basophils # (Auto) 0.0 x10^3/uL (0.0-0.2) Sodium Level 146 mmol/L (136-145) Potassium Level 3.6 mmol/L (3.5-5.1) Chloride Level 111 mmol/L (98-107) Carbon Dioxide Level 25 mmol/L (21-32) Anion Gap 10 (6-14) Blood Urea Nitrogen 9 mg/dL (7-20) Creatinine 0.6 mg/dL (0.6-1.0) Estimated GFR (Cockcroft-Gault) 102.7 BUN/Creatinine Ratio 15 (6-20) Glucose Level 97 mg/dL (70-99) Calcium Level 8.1 mg/dL (8.5-10.1) Total Bilirubin 0.4 mg/dL (0.2-1.0) Aspartate Amino Transf (AST/SGOT) 28 U/L (15-37) Alanine Aminotransferase (ALT/SGPT) 36 U/L (14-59) Alkaline Phosphatase 59 U/L (46-116) Total Protein 5.2 g/dL (6.4-8.2) Albumin 2.6 g/dL (3.4-5.0) Albumin/Globulin Ratio 1.0 (1.0-1.7) Triglycerides Level 88 mg/dL (0-150) Cholesterol Level 122 mg/dL (0-200) LDL Cholesterol, Calculated 71 mg/dL (0-100) VLDL Cholesterol, Calculated 18 mg/dL (0-40) Non-HDL Cholesterol Calculated 89 mg/dL (0-129) HDL Cholesterol 33 mg/dL (40-60) Cholesterol/HDL Ratio 3.7 Urine Opiates Screen Neg (NEG) Urine Methadone Screen Neg (NEG) Urine Barbiturates Neg (NEG) Urine Phencyclidine Screen Neg (NEG) Urine Amphetamine/Methamphetamine Neg (NEG) Urine Benzodiazepines Screen Pos (NEG) Urine Cocaine Screen Neg (NEG) Urine Cannabinoids Screen Neg (NEG) Urine Ethyl Alcohol Neg (NEG) Laboratory Tests Test 05/10/19 12:40 Urine Opiates Screen Neg (NEG) Urine Methadone Screen Neg (NEG) Urine Barbiturates Neg (NEG) Urine Phencyclidine Screen Neg (NEG) Urine Amphetamine/Methamphetamine Neg (NEG) Urine Benzodiazepines Screen Pos (NEG) Urine Cocaine Screen Neg (NEG) Urine Cannabinoids Screen Neg (NEG) Urine Ethyl Alcohol Neg (NEG) Microbiology 05/09/19 Blood Culture - Preliminary, Resulted NO GROWTH AFTER 1 DAY 05/10/19 Fecal Leukocyte Stain - Final, Complete Medications Current Medications Sodium Chloride 1,000 ml @ 1,000 mls/hr 1X ONCE IV ; Start 05/09/19 at 06:00; Stop 05/09/19 at 06:59; Status UNV Sodium Chloride 500 ml @ 500 mls/hr 1X ONCE IV ; Start 05/09/19 at 06:00; Stop 05/09/19 at 06:59; Status UNV Sodium Chloride 1,000 ml @ 1,000 mls/hr 1X ONCE IV Last administered on 05/09/19at 06:07; Start 05/09/19 at 06:00; Stop 05/09/19 at 06:59; Status DC Sodium Chloride 500 ml @ 500 mls/hr 1X ONCE IV Last administered on 05/09/19at 06:07; Start 05/09/19 at 06:00; Stop 05/09/19 at 06:59; Status DC Ondansetron HCl (Zofran) 4 mg 1X ONCE IV Last administered on 05/09/19at 06:06; Start 05/09/19 at 06:15; Stop 05/09/19 at 06:16; Status DC Ketorolac Tromethamine (Toradol 30mg Vial) 30 mg 1X ONCE IV Last administered on 05/09/19at 06:27; Start 05/09/19 at 07:00; Stop 05/09/19 at 07:01; Status DC Fentanyl Citrate (Fentanyl 2ml Vial) 50 mcg 1X ONCE IV Last administered on 05/09/19at 07:57; Start 05/09/19 at 07:15; Stop 05/09/19 at 07:16; Status DC Dicyclomine HCl (Bentyl) 10 mg 1X ONCE PO Last administered on 05/09/19at 07:55; Start 05/09/19 at 07:15; Stop 05/09/19 at 07:16; Status DC Iohexol (Omnipaque 300 Mg/ml) 60 ml 1X ONCE IV Last administered on 05/09/19at 08:25; Start 05/09/19 at 08:00; Stop 05/09/19 at 08:01; Status DC Info (CONTRAST GIVEN -- Rx MONITORING) 1 each PRN DAILY PRN MC SEE COMMENTS; Start 05/09/19 at 08:00; Stop 05/11/19 at 07:59; Status DC Fentanyl Citrate (Fentanyl 2ml Vial) 50 mcg 1X ONCE IV Last administered on 05/09/19at 09:58; Start 05/09/19 at 09:45; Stop 05/09/19 at 09:46; Status DC Sodium Chloride 1,000 ml @ 150 mls/hr Q6H40M IV Last administered on 05/09/19at 10:07; Start 05/09/19 at 10:00; Stop 05/09/19 at 15:52; Status DC Cyanocobalamin (Vitamin B-12) 1,000 mcg ONCE ONCE IM Last administered on 05/09/19at 11:38; Start 05/09/19 at 10:00; Stop 05/09/19 at 10:01; Status DC Prochlorperazine Edisylate (Compazine) 10 mg PRN Q6HRS PRN IM NAUSEA/VOMITING; Start 05/09/19 at 11:30; Stop 05/09/19 at 12:05; Status DC Aspirin (Children'S Aspirin) 81 mg DAILY PO ; Start 05/09/19 at 12:00; Status Cancel Docusate Sodium (Colace) 100 mg HS PO Last administered on 05/10/19at 20:28; Start 05/09/19 at 21:00 Levothyroxine Sodium (Synthroid) 100 mcg DAILYAC PO Last administered on 05/11/19 06:00; Start 05/09/19 at 12:00 Pantoprazole Sodium (Protonix) 40 mg QHS PO Last administered on 05/10/19at 20:28; Start 05/09/19 at 21:00 Venlafaxine HCl (Effexor) 75 mg TID PO Last administered on 05/11/19 09:09; Start 05/09/19 at 14:00 Ringer's Solution 1,000 ml @ 150 mls/hr Q6H40M IV Last administered on 05/10/19 02:34; Start 05/09/19 at 11:30; Stop 05/10/19 at 11:23; Status DC Ondansetron HCl (Zofran) 4 mg PRN Q6HRS PRN IV NAUSEA/VOMITING, 1st CHOICE Last administered on 05/10/19 17:19; Start 05/09/19 at 11:30 Aspirin (Children'S Aspirin) 81 mg QHS PO Last administered on 05/11/19 09:09; Start 05/09/19 at 21:00 Prochlorperazine Edisylate (Compazine) 10 mg PRN Q6HRS PRN IV NAUSEA/VOMITING, 2nd CHOICE Last administered on 05/09/19at 18:47; Start 05/09/19 at 12:15 Ketorolac Tromethamine (Toradol 15mg Vial) 15 mg PRN Q8HRS PRN IV PAIN Last administered on 05/10/19 02:34; Start 05/09/19 at 16:00; Stop 05/14/19 at 15:59 Acetaminophen (Tylenol) 650 mg PRN Q6HRS PRN PO FEVER Last administered on 05/11/19 06:00; Start 05/09/19 at 20:45 Fentanyl Citrate (Fentanyl 2ml Vial) 50 mcg 1X ONCE IV Last administered on 05/10/19at 14:25; Start 05/10/19 at 11:30; Stop 05/10/19 at 11:31; Status DC Naproxen (Naprosyn) 500 mg BID PO Last administered on 05/11/19 09:09; Start 05/10/19 at 11:30 Cetirizine HCl (ZyrTEC) 10 mg DAILY PO Last administered on 05/11/19 09:09; Start 05/10/19 at 11:30 Fluticasone Propionate (Flonase) 2 spray DAILY NS Last administered on 05/11/19 09:08; Start 05/10/19 at 12:00 Loperamide HCl (Imodium) 2 mg PRN Q15MIN PRN PO DIARRHEA; Start 05/10/19 at 11:30 Heparin Sodium (Porcine) (Hep Lock Adult) 500 unit STK-MED ONCE IV ; Start at 09:15; Stop 05/11/19 at 09:17; Status DC Active Scripts Active Fluticasone Propionate Nasal [place] (Fluticasone Propionate) 16 Gm [place].susp 2 [place] NS DAILY 7 Days Naprosyn (Naproxen) 500 Mg Tablet 500 Mg PO BID MDD 1 Cetirizine Hcl 10 Mg Tablet 10 Mg PO DAILY Reported Aspirin 81 Mg Tab.chew 81 Mg PO DAILY Docusate Sodium 100 Mg Capsule 1 Cap PO HS Omeprazole 40 Mg Capsule.dr 40 Mg PO HS Levothyroxine Sodium 100 Mcg Tablet 100 Mcg PO DAILYAC Venlafaxine Hcl Er (Venlafaxine Hcl) 225 Mg Tab.er.24 225 Mg PO HS Vitals/I & O Vital Sign - Last 24 Hours 05/10/19 05/10/19 05/10/19 05/10/19 11:45 14:25 14:55 15:40 Temp 98.1 97.8 98.1 97.8 Pulse 72 71 Resp 20 16 B/P (MAP) 132/91 (105) 116/72 (87) Pulse Ox 97 97 96 O2 Delivery Room Air Room Air Room Air Room Air 05/10/19 05/10/19 05/10/19 05/11/19 19:06 20:00 23:21 03:47 Temp 98.3 97.7 97.7 98.3 97.7 97.7 Pulse 71 70 72 Resp 18 18 18 B/P (MAP) 115/73 (87) 123/75 (91) 109/81 (90) Pulse Ox 96 96 96 O2 Delivery Room Air Room Air Room Air Room Air 05/11/19 05/11/19 07:45 08:00 Temp 98.4 98.4 Pulse 73 Resp 20 B/P (MAP) 126/72 (90) Pulse Ox 96 O2 Delivery Room Air Room Air Intake and Output 05/10/19 05/10/19 05/11/19 15:00 23:00 07:00 Intake Total 240 ml 200 ml Balance 240 ml 200 ml SUREKHA FERGUSON MD May 11, 2019 09:29
--- NOTE | 2019-05-11 10:45 | PDOC ---
Subjective: Subjective: Feeling much better. Tolerating PO, no diarrhea. Would like to go home. Objective: Vital Signs: Vital Signs Date Time Temp Pulse Resp B/P (MAP) Pulse Ox O2 Delivery O2 Flow Rate FiO2 05/11/19 08:00 Room Air 05/11/19 07:45 98.4 73 20 126/72 (90) 96 98.4 Labs: Laboratory Tests Test 05/10/19 12:40 Urine Opiates Screen Neg Urine Methadone Screen Neg Urine Barbiturates Neg Urine Phencyclidine Screen Neg Urine Amphetamine/Methamphetamine Neg Urine Benzodiazepines Screen Pos Urine Cocaine Screen Neg Urine Cannabinoids Screen Neg Urine Ethyl Alcohol Neg Imaging: CXR 05/10 IMPRESSION: No acute cardiopulmonary abnormality is detected. Brain MRI 05/10 Impression: No acute parenchymal abnormality is seen. Echocardiogram 05/10 <Conclusion> The left ventricular systolic function is normal. The Ejection Fraction is 55-60%. There is normal LV segmental wall motion. Trace mitral regurgitation. Trace tricuspid regurgitation with an estimated PAP of 23 mmHg. There is no evidence of significant pericardial effusion. EEG 05/10 IMPRESSION: This EEG is a normal study for the awake, drowsy, and sleep states. No focal, lateralizing, specific epileptiform discharge or electrographic seizure is seen. PE: GEN: NAD LUNGS: CTAB HEART: RRR ABD: NABS, S/ND/NT NEURO/PSYCH: A & O 3 A/P: Syncope Vomiting, diarrhea - resolved -- DC per primary. RON LOUIS May 11, 2019 10:45
[2019-05-11 11:45] VITALS: BP 133/77
--- NOTE | 2019-05-11 15:34 | PDOC3 ---
Discharge Summary Date of Admission: May 09, 2019 Date of Discharge: May 11, 2019 Follow-Up: 3-5 days Admitting Diagnosis comment: DISCHARGE DX Chief Complaint Syncope - likely vasovagal N/V/D - gastroenteritis S/p gastric sleeve - B12 deficiency - replaced Hypothyroidism - cont thyroid replacement Headaches - diarrhea History of Present Illness History of Present Illness MRI and EEG ordered by neurology syncope most likely vasovagal, recent GI losses (n.v.d) Diarrhea one episode 05/10 Headaches bother her, Plan: PRN start Imodium Start NSAID Celebrex for the headache H1 antagonists Flonase FEntanyl x 1 per pt request (helped from er) I provided copies of the CAT scan which shows sinusitis of the CT head sinuses CAT scan of abdomen and pelvis only shows stool or liquid in the colon MRI of the brain without contrast 05/10/2019 Clinical History: Dizziness. Weakness. Loss of consciousness. Syncope. Technique: Unenhanced T1-weighted sagittal and axial, T2-weighted axial and coronal and FLAIR, gradient echo and diffusion-weighted axial images of the brain were obtained. Findings: Comparison is made to the patient's CT scan of the head dated 05/09/2019. Additional comparison is made to patient's MRI of the brain dated 04/16/2009. The ventricles and sulci are within normal limits in size and configuration. Patchy and several small focal areas of increased signal intensity are seen within the periventricular and subcortical white matter of both cerebral hemispheres on the FLAIR and T2-weighted images consistent with areas of very mild small vessel ischemic disease. These are unchanged. No acute parenchymal abnormality is seen. No extra-axial fluid collection is seen. There is no MRI evidence of acute ischemia/infarction. Mild to moderate mucosal thickening is seen scattered throughout the paranasal sinuses. Small fluid levels are seen involving both maxillary sinuses, left greater than right. There is a minimal right mastoid effusion. Normal flow voids are seen within the major vascular structures surrounding the brain parenchyma. Impression: No acute parenchymal abnormality is seen. Vitals Vitals Vital Signs Date Time Temp Pulse Resp B/P (MAP) Pulse Ox O2 Delivery O2 Flow Rate FiO2 05/11/19 08:00 Room Air 05/11/19 07:45 98.4 73 20 126/72 (90) 96 98.4 Physical Exam General: Alert, Oriented X3, Cooperative, No acute distress Heart: Regular rate, Normal S1, Normal S2 Lungs: Clear Abdomen: Normal bowel sounds, Soft, No hepatosplenomegaly, No masses, Other (diffuse mild tenderness) Extremities: No clubbing, No cyanosis, No edema, Normal pulses, No tenderness/swelling Skin: No rashes, No breakdown, No significant lesion FINAL DIAGNOSIS Problems Medical Problems: (1) Acute gastroenteritis Status: Acute (2) Syncope Status: Acute Brief Hospital Course Ms. Pagan is a 59 old [sex] who presented with [SYNCOPE, VASOVAGAL ] CONDITION AT DISCHARGE: Improved Discharge Medications Current Medications Sodium Chloride 1,000 ml @ 1,000 mls/hr 1X ONCE IV ; Start 05/09/19 at 06:00; Stop 05/09/19 at 06:59; Status UNV Sodium Chloride 500 ml @ 500 mls/hr 1X ONCE IV ; Start 05/09/19 at 06:00; Stop 05/09/19 at 06:59; Status UNV Sodium Chloride 1,000 ml @ 1,000 mls/hr 1X ONCE IV Last administered on 05/09/19at 06:07; Start 05/09/19 at 06:00; Stop 05/09/19 at 06:59; Status DC Sodium Chloride 500 ml @ 500 mls/hr 1X ONCE IV Last administered on 05/09/19at 06:07; Start 05/09/19 at 06:00; Stop 05/09/19 at 06:59; Status DC Ondansetron HCl (Zofran) 4 mg 1X ONCE IV Last administered on 05/09/19at 06:06; Start 05/09/19 at 06:15; Stop 05/09/19 at 06:16; Status DC Ketorolac Tromethamine (Toradol 30mg Vial) 30 mg 1X ONCE IV Last administered on 05/09/19at 06:27; Start 05/09/19 at 07:00; Stop 05/09/19 at 07:01; Status DC Fentanyl Citrate (Fentanyl 2ml Vial) 50 mcg 1X ONCE IV Last administered on 05/09/19at 07:57; Start 05/09/19 at 07:15; Stop 05/09/19 at 07:16; Status DC Dicyclomine HCl (Bentyl) 10 mg 1X ONCE PO Last administered on 05/09/19at 07:55; Start 05/09/19 at 07:15; Stop 05/09/19 at 07:16; Status DC Iohexol (Omnipaque 300 Mg/ml) 60 ml 1X ONCE IV Last administered on 05/09/19at 08:25; Start 05/09/19 at 08:00; Stop 05/09/19 at 08:01; Status DC Info (CONTRAST GIVEN -- Rx MONITORING) 1 each PRN DAILY PRN MC SEE COMMENTS; Start 05/09/19 at 08:00; Stop 05/11/19 at 07:59; Status DC Fentanyl Citrate (Fentanyl 2ml Vial) 50 mcg 1X ONCE IV Last administered on 05/09/19at 09:58; Start 05/09/19 at 09:45; Stop 05/09/19 at 09:46; Status DC Sodium Chloride 1,000 ml @ 150 mls/hr Q6H40M IV Last administered on 05/09/19at 10:07; Start 05/09/19 at 10:00; Stop 05/09/19 at 15:52; Status DC Cyanocobalamin (Vitamin B-12) 1,000 mcg ONCE ONCE IM Last administered on 05/09/19at 11:38; Start 05/09/19 at 10:00; Stop 05/09/19 at 10:01; Status DC Prochlorperazine Edisylate (Compazine) 10 mg PRN Q6HRS PRN IM NAUSEA/VOMITING; Start 05/09/19 at 11:30; Stop 05/09/19 at 12:05; Status DC Aspirin (Children'S Aspirin) 81 mg DAILY PO ; Start 05/09/19 at 12:00; Status Cancel Docusate Sodium (Colace) 100 mg HS PO Last administered on 05/10/19at 20:28; Start 05/09/19 at 21:00 Levothyroxine Sodium (Synthroid) 100 mcg DAILYAC PO Last administered on 05/11/19at 06:00; Start 05/09/19 at 12:00 Pantoprazole Sodium (Protonix) 40 mg QHS PO Last administered on 05/10/19at 20:28; Start 05/09/19 at 21:00 Venlafaxine HCl (Effexor) 75 mg TID PO Last administered on 05/11/19at 14:26; Start 05/09/19 at 14:00 Ringer's Solution 1,000 ml @ 150 mls/hr Q6H40M IV Last administered on 05/10/19 02:34; Start 05/09/19 at 11:30; Stop 05/10/19 at 11:23; Status DC Ondansetron HCl (Zofran) 4 mg PRN Q6HRS PRN IV NAUSEA/VOMITING, 1st CHOICE Last administered on 05/10/19 17:19; Start 05/09/19 at 11:30 Aspirin (Children'S Aspirin) 81 mg QHS PO Last administered on 05/11/19 09:09; Start 05/09/19 at 21:00 Prochlorperazine Edisylate (Compazine) 10 mg PRN Q6HRS PRN IV NAUSEA/VOMITING, 2nd CHOICE Last administered on 05/09/19 18:47; Start 05/09/19 at 12:15 Ketorolac Tromethamine (Toradol 15mg Vial) 15 mg PRN Q8HRS PRN IV PAIN Last administered on 05/10/19 02:34; Start 05/09/19 at 16:00; Stop 05/14/19 at 15:59 Acetaminophen (Tylenol) 650 mg PRN Q6HRS PRN PO FEVER Last administered on 05/11/19 14:29; Start 05/09/19 at 20:45 Fentanyl Citrate (Fentanyl 2ml Vial) 50 mcg 1X ONCE IV Last administered on 05/10/19 14:25; Start 05/10/19 at 11:30; Stop 05/10/19 at 11:31; Status DC Naproxen (Naprosyn) 500 mg BID PO Last administered on 05/11/19 09:09; Start 05/10/19 at 11:30 Cetirizine HCl (ZyrTEC) 10 mg DAILY PO Last administered on 05/11/19 09:09; Start 05/10/19 at 11:30 Fluticasone Propionate (Flonase) 2 spray DAILY NS Last administered on 05/11/19 09:08; Start 05/10/19 at 12:00 Loperamide HCl (Imodium) 2 mg PRN Q15MIN PRN PO DIARRHEA; Start 05/10/19 at 11:30 Heparin Sodium (Porcine) (Hep Lock Adult) 500 unit STK-MED ONCE IV ; Start 05/10/19 at 09:15; Stop 05/11/19 at 09:17; Status DC Active Scripts Active Fluticasone Propionate Nasal Lorida (Fluticasone Propionate) 16 Gm Lorida.susp 2 Lorida NS DAILY 7 Days Naprosyn (Naproxen) 500 Mg Tablet 500 Mg PO BID MDD 1 Cetirizine Hcl 10 Mg Tablet 10 Mg PO DAILY Reported Aspirin 81 Mg Tab.chew 81 Mg PO DAILY Docusate Sodium 100 Mg Capsule 1 Cap PO HS Omeprazole 40 Mg Capsule.dr 40 Mg PO HS Levothyroxine Sodium 100 Mcg Tablet 100 Mcg PO DAILYAC Venlafaxine Hcl Er (Venlafaxine Hcl) 225 Mg Tab.er.24 225 Mg PO HS Vital Signs Vital Signs Date Time Temp Pulse Resp B/P (MAP) Pulse Ox O2 Delivery O2 Flow Rate FiO2 05/11/19 11:45 98.4 73 18 133/77 (95) 95 Room Air 98.4 Labs Laboratory Tests Test 05/10/19 07:00 05/10/19 07:10 05/10/19 12:40 Clostridium difficile Toxin B Gene Negative (Negative) White Blood Count 4.3 x10^3/uL (4.0-11.0) Red Blood Count 3.67 x10^6/uL (3.50-5.40) Hemoglobin 11.7 g/dL (12.0-15.5) Hematocrit 33.9 % (36.0-47.0) Mean Corpuscular Volume 92 fL (79-100) Mean Corpuscular Hemoglobin 32 pg (25-35) Mean Corpuscular Hemoglobin Concent 35 g/dL (31-37) Red Cell Distribution Width 13.0 % (11.5-14.5) Platelet Count 185 x10^3/uL (140-400) Neutrophils (%) (Auto) 53 % (31-73) Lymphocytes (%) (Auto) 38 % (24-48) Monocytes (%) (Auto) 8 % (0-9) Eosinophils (%) (Auto) 0 % (0-3) Basophils (%) (Auto) 0 % (0-3) Neutrophils # (Auto) 2.3 x10^3uL (1.8-7.7) Lymphocytes # (Auto) 1.6 x10^3/uL (1.0-4.8) Monocytes # (Auto) 0.4 x10^3/uL (0.0-1.1) Eosinophils # (Auto) 0.0 x10^3/uL (0.0-0.7) Basophils # (Auto) 0.0 x10^3/uL (0.0-0.2) Sodium Level 146 mmol/L (136-145) Potassium Level 3.6 mmol/L (3.5-5.1) Chloride Level 111 mmol/L (98-107) Carbon Dioxide Level 25 mmol/L (21-32) Anion Gap 10 (6-14) Blood Urea Nitrogen 9 mg/dL (7-20) Creatinine 0.6 mg/dL (0.6-1.0) Estimated GFR (Cockcroft-Gault) 102.7 BUN/Creatinine Ratio 15 (6-20) Glucose Level 97 mg/dL (70-99) Calcium Level 8.1 mg/dL (8.5-10.1) Total Bilirubin 0.4 mg/dL (0.2-1.0) Aspartate Amino Transf (AST/SGOT) 28 U/L (15-37) Alanine Aminotransferase (ALT/SGPT) 36 U/L (14-59) Alkaline Phosphatase 59 U/L (46-116) Total Protein 5.2 g/dL (6.4-8.2) Albumin 2.6 g/dL (3.4-5.0) Albumin/Globulin Ratio 1.0 (1.0-1.7) Triglycerides Level 88 mg/dL (0-150) Cholesterol Level 122 mg/dL (0-200) LDL Cholesterol, Calculated 71 mg/dL (0-100) VLDL Cholesterol, Calculated 18 mg/dL (0-40) Non-HDL Cholesterol Calculated 89 mg/dL (0-129) HDL Cholesterol 33 mg/dL (40-60) Cholesterol/HDL Ratio 3.7 Urine Opiates Screen Neg (NEG) Urine Methadone Screen Neg (NEG) Urine Barbiturates Neg (NEG) Urine Phencyclidine Screen Neg (NEG) Urine Amphetamine/Methamphetamine Neg (NEG) Urine Benzodiazepines Screen Pos (NEG) Urine Cocaine Screen Neg (NEG) Urine Cannabinoids Screen Neg (NEG) Urine Ethyl Alcohol Neg (NEG) Allergies Allergies Coded Allergies Type Severity Reaction Last Updated Verified amoxicillin Adverse Reaction Mild DIARRHEA 05/09/19 Yes clavulanic acid Adverse Reaction Mild DIARRHEA 05/09/19 Yes hydrocodone Adverse Reaction Mild ITCHING 05/09/19 Yes Disposition/Orders: D/C to Home Patient Instructions D/C PLANNING 33 MIN SUREKHA FERGUSON MD May 11, 2019 15:34
--- NOTE | 2019-05-11 15:36 | DISCH ---
DISCHARGE INSTRUCTIONS Condition on Discharge Condition on Discharge: Stable Activity After Discharge Activity Instructions for Disc: Resume previous activity Lifting Instructions after Dis: No heavy lifting, No pulling or pushing Driving Instructions after Dis: Do not drive today Diet after Discharge Diet after Discharge: Low Sodium 2 gm Checks after Discharge Checks after discharge: Check blood press - daily Contacting the DR. after DC Call your doctor for: If your condition worsens SUREKHA FERGUSON MD May 11, 2019 15:36
[2019-05-11 15:45] VITALS: BP 133/71
--- NOTE | 2019-05-11 15:56 | NUR ---
Discharge Note: YURY MCCLURE [address] Discharge instructions and discharge home medications reviewed with Patient and a copy given. All questions have been answered and understanding verbalized. The following instructions and handouts were given: follow up instructions, prescriptions Discontinued lines and drains: 20 gauge left AC, tip intact. patient tolerated well. Patient discharged to home with self care via .
--- NOTE | 2019-05-11 15:58 | PDOC ---
PROGRESS NOTES Assessment Assessment Episodic LOC. Dizziness. Vomiting. Headache. Syncope. No evidence of seizure. UTI? DM Obesity. No evidence of acute CVA this time. RECOMMENDATIONS/PLAN: Treat medical diseases. OT/PT. FU with PCP. Discussed with her family at bedside on 05/11/19. EEG On 05/10/19: Normal. MRI: negative. HISTORY OF THE PRESENT ILLNESS: This is a 59-y-old female admitted through the ER. She stated she was not feeling well in the past 2 weeks, but had 3 episodes of LOC, dizziness, generalized weakness, headaches, and vomiting since 4:00 a.m this morning. Her caught her form falling. She described that she got out of bed to urinate then fainted several times, doesn't remember parts of journey to the hospital, felt cold and was sweaty, extremities were tingling and she couldn't move them, says blood pressure was low. Vomiting and diarrhea started after arrival here. PMH: GERD, hypothyroidism, depression FH: No pertinent hx (denies GI cancers) PAST SURGERY HISTORY: Tonsillectomy, appendectomy, , cholecystectomy. ALLERGY: Unknown MEDICATIONS: Refer to MAR SOCIAL HISTORY: Lives at home with her . Smoke: <1 pack per day (socially when she has a glass of wine) ALCOHOL: social REVIEW OF SYSTEMS: Constitutional: Obese. Head: No traumatic brain or head injury. Skin: No edema, or rash. Ear: No infection. Eyes: No vision loss or color blindness. Nose: No bleeding or purulent discharges. Hearing: No hearing decrease. Neck: No injury. Breast: No history of cancer, masses,or discharges. Cardiac: No PR, arrhythmia,claudication. Pulmonary: smoking. Cough. GI: GERD. Urinary/genital: UTI. Endocrinologic: Diabetes Mellitus, hypothyroidism, obesity. Skeletomuscular: Generalized weakness. Neurological: see HP. Psychiatric: Denies drug use/abuse. Otherwise, not [id number] review of systems. PHYSICAL EXAMINATION: General appearance is in no acute distress. HEENT: Normocephalic and nontraumatic. Eyes, nose, ears, and throat are unremarkable. Neck is supple. No lymphadenopathy. No crepitus. Cardiovascular: S1, S2, regular rate and rhythm. Pulmonary: Clear to auscultation bilaterally. Abdomen: Bowel sounds are positive. Extremities: No rash, lesions, or edema. No restriction of range of motion NEUROLOGICAL EXAMINATION: Awake. Oriented to time, place and person. PERRL. EOMI. CN: no focal findings. Muscle tone: within normal. Muscle strength: 5 DTR: 2- Plantar reflex: Flexor response bilaterally Gait: Able to walk. Sensory exam: no abnormal findings. No cerebellar signs elicited. F-T-N test fine. Objective Objective Vital Signs Date Time Temp Pulse Resp B/P (MAP) Pulse Ox O2 Delivery O2 Flow Rate FiO2 05/11/19 11:45 98.4 73 18 133/77 (95) 95 Room Air 98.4 Intake and Output 05/11/19 07:00 Intake Total 440 ml Balance 440 ml Intake Oral 440 ml # Voids 2 # Bowel Movements 1 Vitals Signs Vitals VS - Last 72 Hours, by Label Date Time Temp Pulse Resp B/P (MAP) Pulse Ox O2 Delivery O2 Flow Rate FiO2 05/11/19 11:45 98.4 73 18 133/77 (95) 95 Room Air 98.4 05/11/19 08:00 Room Air 05/11/19 07:45 98.4 73 20 126/72 (90) 96 Room Air 98.4 05/11/19 03:47 97.7 72 18 109/81 (90) 96 Room Air 97.7 05/10/19 23:21 97.7 70 18 123/75 (91) 96 Room Air 97.7 05/10/19 20:00 Room Air 05/10/19 19:06 98.3 71 18 115/73 (87) 96 Room Air 98.3 05/10/19 15:40 97.8 71 16 116/72 (87) 96 Room Air 97.8 05/10/19 14:55 97 Room Air 05/10/19 14:25 Room Air 05/10/19 11:45 98.1 72 20 132/91 (105) 97 Room Air 98.1 05/10/19 08:00 Room Air 05/10/19 07:48 97.7 75 18 126/73 (90) 94 Room Air 97.7 Laboratory Laboratory Microbiology 05/09/19 Blood Culture - Preliminary, Resulted NO GROWTH AFTER 1 DAY 05/10/19 Fecal Leukocyte Stain - Final, Complete 05/09/19 Urine Culture - Final, Complete 6/12/19 Urine Culture Result 1 (GLADIS) - Final, Complete Comment Review of Relevant I have reviewed the following items yolie (where applicable) has been applied. BENNETT CEDILLO MD May 11, 2019 15:58
== END 2019-05-11 16:00 | disposition home or self-care (01) | DRG 392 ==
LOC: ER 05:04 → 6 SOUTH 08:27
PROVIDERS: ADMIT Internal Medicine; ATTEND Internal Medicine
DX: K52.9 Noninfective gastroenteritis and colitis, unspecified (principal); R55 Syncope and collapse; E03.9 Hypothyroidism, unspecified; E11.9 Type 2 diabetes mellitus without complications; E53.8 Deficiency of other specified B group vitamins; E66.9 Obesity, unspecified; F17.210 Nicotine dependence, cigarettes, uncomplicated; F32.9 Major depressive disorder, single episode, unspecified; K21.9 Gastro-esophageal reflux disease without esophagitis; K57.30 Diverticulosis of large intestine without perforation or abscess without bleeding; K76.0 Fatty (change of) liver, not elsewhere classified; Z79.82 Long term (current) use of aspirin; Z82.49 Family history of ischemic heart disease and other diseases of the circulatory system; Z90.49 Acquired absence of other specified parts of digestive tract; Z98.84 Bariatric surgery status; Z88.8 Allergy status to other drugs, medicaments and biological substances
CPT/HCPCS: 36415; 70450; 70551; 71046; 74177; 80053; 80061; 80307; 81001; 83735; 85025; 87040; 87045; 87086; 87205; 87493; 93005; 93306; 95816; 96374; J0780; J1885; J2405; J3010; J3420; J7030; J7040; J7120; Q9967; 99285-25